=== PATIENT | male | born 1980 | race Caucasian/White ===

== ENCOUNTER 2017-10-10 10:59 | Inpatient (IN) | payer OTHER ==
[2017-10-10 11:26] VITALS: BMI 20.5
--- NOTE | 2017-10-10 12:38 | HP ---
COWS - Scale Resting Pulse: 1= NC 81-100 Sweatin=Flushed/Facial Moisture Restless Observation: 3= Extraneous Movement Pupil Size: 2= Moderately Dilated Bone or Joint Aches: 2= Severe Diffuse Aches Runny Nose/ Eye Tearin= Runny Nose/Eyes GI Upset > 30mins: 3= Vomiting/Diarrhea Tremor Observation: 2= Slight Tremor Visible Yawning Observation: 2= >3x During Session Anxiety or Irritability: 2=Irritable/Anxious Goose Flesh Skin: 0=Smooth Skin COWS Score: 21 Admission ROS BHS - HPI Chief Complaint: I NEED HELP TO STOP USING HEROIN AND COCAINE Allergies/Adverse Reactions: Allergies Allergy/AdvReac Type Severity Reaction Status Date / Time No Known Allergies Allergy Verified 10/10/17 11:49 History of Present Illness: THIS 36 YEARS OLD MALE WITH HEROIN AND COCAINE DEPENDENCE,SEEKING DETOX, WITHDRAWAL SYMPTOM,LAST DETOX [facility] 01/30/15 TO 02/02/15 NOT COMPLETED DEPRESSION AND INSOMNIA WEIGHT LOSS NICOTINE DEPENDENCE LONGEST PERIOD OF SOBRIETY 4 YEARS - Ebola screening Have you traveled outside of the country in the last 21 days: No (N) Have you had contact with anyone from an Ebola affected area: No Have you been sick,other than usual withdrawal symptoms: No Do you have a fever: No - Review of Systems Constitutional: Chills, Loss of Appetite, Malaise, Night Sweats, Changes in sleep, Weakness, Unintentional Wgt. Loss EENT: reports: Tearing, Nose Congestion Respiratory: reports: No Symptoms reported Cardiac: reports: Palpitations GI: reports: Diarrhea, Nausea, Vomiting, Abdominal cramping : reports: No Symptoms Reported Musculoskeletal: reports: Back Pain, Muscle Pain Integumentary: reports: Dryness Neuro: reports: Headache, Tremors Endocrine: reports: No Symptoms Reported, See HPI, Excessive Sweating, Flushing Hematology: reports: No Symptoms Reported Psychiatric: reports: Depressed Patient History - Patient Medical History Hx Anemia: No Hx Asthma: No Hx Chronic Obstructive Pulmonary Disease (COPD): No Hx Cancer: No Hx Cardiac Disorders: No Hx Congestive Heart Failure: No Hx Hypertension: No Hx Hypercholesterolemia: No Hx Pacemaker: No HX Cerebrovascular Accident: No Hx Seizures: No Hx Dementia: No Hx Diabetes: No Hx Gastrointestinal Disorders: No Hx Liver Disease: Yes Hx Genitourinary Disorders: No Hx Sexually Transmitted Disorders: No Hx Renal Disease (ESRD): No Hx Thyroid Disease: No Hx Human Immunodeficiency Virus (HIV): No (2017 NEGATIVE) Hx Hepatitis C: Yes (SINCE 2000) Hx Depression: Yes Hx Suicide Attempt: No Hx Bipolar Disorder: No Hx Schizophrenia: No Other Medical History: NO SUICIDAL,NO HOMICIDAL - Patient Surgical History Past Surgical History: No Hx Neurologic Surgery: No Hx Cataract Extraction: No Hx Cardiac Surgery: No Hx Lung Surgery: No Hx Breast Surgery: No Hx Breast Biopsy: No Hx Abdominal Surgery: No Hx Appendectomy: No Hx Cholecystectomy: No Hx Genitourinary Surgery: No Hx Section: No Hx Orthopedic Surgery: No Anesthesia Reaction: No - PPD History Previous Implant?: Yes Documented Results: Negative w/o proof Implanted On Prior [facility] Admission?: Yes Date: 02/01/15 PPD to be Administered?: Yes - Smoking Cessation Smoking history: Current every day smoker Have you smoked in the past 12 months: Yes Aproximately how many cigarettes per day: 20 Cigars Per Day: 0 Hx Chewing Tobacco Use: No Initiated information on smoking cessation: Yes 'Breaking Loose' booklet given: 10/10/17 - Substance & Tx. History Hx Alcohol Use: No Hx Substance Use: Yes Substance Use Type: Cocaine, Heroin Hx Substance Use Treatment: Yes ([facility] 01/30/15 TO 02/02/15 NOT COMPLETED) - Substances Abused Heroin Route: Injection Frequency: Daily Amount used: 15 bags Age of first use: 12 Date of Last Use: 10/09/17 Cocaine Route: Injection Frequency: Daily Amount used: 3-4 bags Age of first use: 12 Date of Last Use: 10/09/17 Family Disease History - Family Disease History Family History: Denies Admission Physical Exam [facility] - Vital Signs Vital Signs: Vital Signs - 24 hr 10/10/17 11:23 Temperature 97.8 F Pulse Rate 92 H Respiratory 18 Rate Blood Pressure 100/60 - Physical General Appearance: Yes: Moderate Distress, Alcohol on Breath, Intoxicated, Irritable, Sweating, Anxious HEENTM: Yes: Normal ENT Inspection, JERRY, Pharynx Normal Respiratory: Yes: Lungs Clear, Normal Breath Sounds, No Respiratory Distress Neck: Yes: Supple, Trachea in good position, Thyroid tenderness Breast: Yes: Within Normal Limits Cardiology: Yes: Within Normal Limits, Regular Rhythm, Regular Rate, S1, S2 Abdominal: Yes: Within Normal Limits, Normal Bowel Sounds, Non Tender, Flat, Soft Genitourinary: Yes: Within Normal Limits Back: Yes: Muscle Spasm Musculoskeletal: Yes: Back pain, Muscle Pain Extremities: Yes: Normal Inspection, Normal Range of Motion, Tremors Neurological: Yes: alarm operator II-XII NML intact, Alert, Motor Strength 5/5 Integumentary: Yes: Dry Lymphatic: Yes: Within Normal Limits - Diagnostic (1) Opioid dependence with withdrawal Current Visit: Yes Status: Acute (2) Cocaine dependence Current Visit: Yes Status: Chronic (3) Hepatitis C Current Visit: No Status: Acute (4) Nicotine dependence Current Visit: Yes Status: Chronic (5) Weight decreased Current Visit: No Status: Chronic (6) Depression Current Visit: Yes Status: Chronic (7) Insomnia Current Visit: Yes Status: Acute Cleared for Admission [facility] - Detox or Rehab [facility] Level of Care: Medically Managed Detox Regimen/Protocol: Methadone [facility] Breath Alcohol Content Breath Alcohol Content: 0 Urine Drug Screen - Results Drug Screen Negative: No Urine Drug Screen Results: SAI-Cocaine, OPI-Opiates, MTD-Methadone
[2017-10-10] MEDS ORDERED: MAGNESIUM CITRATE 300 ML BOTTLE PO PRN (12:46)
[2017-10-10] MEDS ORDERED: LOPERAMIDE HCL 2 MG CAPSULE PO PRN (12:46)
[2017-10-10] MEDS ORDERED: P-EPHED 60MG/TRIPROLIDI 2.5MG TABLET PO PRN (12:46)
[2017-10-10] MEDS ORDERED: MENTHOL/PHENOL 1 EACH UD MM PRN (12:46)
[2017-10-10] MEDS ORDERED: guaiFENesin/D-METHORPHAN HB 10 ML UNIT-DOSE CUPS PO PRN (12:46)
[2017-10-10] MEDS ORDERED: MAGNESIUM HYDROX 2400MG/30ML ORAL SUSPENSION 30 ML CUP PO PRN (12:46)
[2017-10-10] MEDS ORDERED: MAG HYDROX/AL HYDROX/SIMETH 30 ML UNIT-DOSE CUP PO PRN (12:46)
[2017-10-10] MEDS ORDERED: ACETAMINOPHEN 325 MG TABLET (FP) PO PRN (12:46)
[2017-10-10] MEDS ORDERED: NICOTINE POLACRILEX 2 MG GUM BUC PRN (12:46)
[2017-10-10] MEDS ORDERED: IBUPROFEN 400 MG TABLET (FP) PO PRN (12:46)
[2017-10-10] MEDS ORDERED: hydrOXYzine PAMOATE 25 MG CAPSULE (FP) PO PRN (12:46)
[2017-10-10] MEDS ORDERED: METHADONE HCL 10 MG TABLET (FOR DETOX USE ONLY) PO ONE ×2 (14:20→23:00)
[2017-10-10] MEDS ORDERED: METHADONE HCL 10 MG TABLET (FOR DETOX USE ONLY) ONE (16:59)
[2017-10-10] MEDS: diazePAM 5 MG TABLET PO PRN ×2 (17:13→22:35)
[2017-10-10] MEDS: NICOTINE 21 MG/24 HOURS TOPICAL PATCH TD SCH (17:16)
[2017-10-10 22:19] LABS: URINE APPEARANCE CLEAR; URINE BILIRUBIN NEGATIVE (NEGATIVE); URINE BLOOD NEGATIVE (NEGATIVE); URINE COLOR DKYELLOW; URINE GLUCOSE (UA) NEGATIVE (NEGATIVE); URINE KETONE NEGATIVE (NEGATIVE); URINE LEUK ESTERASE NEGATIVE (NEGATIVE); URINE NITRITE NEGATIVE (NEGATIVE); URINE PROTEIN NEGATIVE (NEGATIVE)
[2017-10-10] MEDS: THIAMINE HCL 100 MG TABLET (FP) PO SCH (22:35)
[2017-10-11] MEDS ORDERED: METHADONE HCL 10 MG TABLET (FOR DETOX USE ONLY) PO ONE (10:00)
[2017-10-11] MEDS: PRENATAL VITAMINS W/ FOLIC ACID TABLET (FP) PO SCH (10:15)
[2017-10-11] MEDS: NICOTINE 21 MG/24 HOURS TOPICAL PATCH TD SCH (10:16)
[2017-10-11 10:29] LABS: HEMATOCRIT 45.9 % (35.4-49); HEMOGLOBIN 14.8 GM/dL (11.7-16.9); MCH 27.7 pg (25.7-33.7); MCHC 32.2 g/dl (32.0-35.9); MEAN PLT VOLUME 10.1 fl (7.5-11.1); PLATELET COUNT 219 K/MM3 (134-434); RBC 5.34 M/mm3 (4.00-5.60); RDW 12.9 % (11.9-15.9); WHITE BLOOD COUNT 6.3 K/mm3 (4.0-10.0)
[2017-10-11 10:37] LABS: CHLORIDE 106 mmol/L (98-107); POTASSIUM 4.3 mmol/L (3.5-5.1); SODIUM 146 mmol/L (136-145)
--- NOTE | 2017-10-11 10:39 | CONSULT ---
[facility] Psychiatric Consult - Data Date of interview: 10/11/17 Admission source: [facility] Identifying data: Readmission to [facility] for this 36 y/o male seeking detox treatment on for heroin and cocaine dependence.Patient is single without children,homeless,unemployed and reportedly deprived of income. Substance Abuse History: Confirmed by patient in this interview.Smoking history : Current every day smoker. Have you smoked in the past 12 months: Yes. Aproximately how many cigarettes per day: 20. Cigars Per Day: 0. Hx Chewing Tobacco Use: No. Initiated information on smoking cessation: Yes. 'Breaking Loose' booklet given: 10/10/17. - Substance & Tx. History. Hx Alcohol Use: No. Hx Substance Use: Yes. Substance Use Type: Cocaine, Heroin. Hx Substance Use Treatment: Yes ([facility] 01/30/15 TO 02/02/15 NOT COMPLETED). - Substances Abused. Heroin. Route: Injection. Frequency: Daily. Amount used: 15 bags. Age of first use: 12. Date of Last Use: 10/09/17. Cocaine. Route: Injection. Frequency: Daily. Amount used: 3-4 bags. Age of first use: 12. Date of Last Use: 10/09/17 Medical History: Hepatitis C. Psychiatric History: Patient admits to a history of multiple psychiatric hospitalizations ([place] [id number],[facility], [place]) .Diagnosed with MDD and Anxiety Disorder.Reportedly medicated with xanax, klonopin and zolpidem.Mr Adrian declares that he used to be followed by Dr Lee ([facility]) in the [place].Patient informs that he got released from senior living last week.No recent history of OPD care.Inquisitive about ways to secure scripts for benzodiazepines after discharge from [facility].Patient endorses a history of three suicide attempts (deliberate overdoses with drugs). Physical/Sexual Abuse/Trauma History: No reported history of abuse. Additional Comment: Urine Drug Screen Results: SAI-Cocaine, OPI-Opiates, MTD- Methadone.Noted. Mental Status Exam - Mental Status Exam Alert and Oriented to: Time, Place, Person Cognitive Function: Good Patient Appearance: Well Groomed (tattoos on both forearms) Mood: Hopeful, Euthymic Affect: Normal Range Patient Behavior: Inappropriate (as evidenced by his request for surrepticious prescriptions for xanax), Cooperative Speech Pattern: Clear Voice Loudness: Normal Thought Process: Intact, Goal Oriented Thought Disorder: Not Present Hallucinations: Denies Suicidal Ideation: Denies Homicidal Ideation: Denies Insight/Judgement: Poor Sleep: Fair Appetite: Good Muscle strength/Tone: Normal Gait/Station: Normal Psychiatric Findings - Problem List ([place] 1, 2,3) (1) Opioid dependence with withdrawal Status: Acute (2) Cocaine dependence Status: Chronic (3) Nicotine dependence Status: Chronic (4) Substance induced mood disorder Status: Acute - Initial Treatment Plan Initial Treatment Plan: Psychoeducation and firm redirections.Patient is made aware of the inappropriateness of his behavior (pressuring this keno writer / runner to write script for xanax on his behalf in violation of practice guidelines).Mr Campbell offered immediate apologies.Detoxification in progress.Daily monitoring of hospital course.Vigilance for prevention of transit of contraband.
[2017-10-11 10:44] LABS: ALK PHOS 118 U/L (45-117); ANION GAP 5 (8-16); BILIRUBIN,TOTAL 0.5 mg/dL (0.2-1.0); BLOOD UREA NITROGEN 19 mg/dL (7-18); CALCIUM 9.1 mg/dL (8.5-10.1); CO2 35 mmol/L (21-32); CREATININE 0.8 mg/dL (0.7-1.3); GLUCOSE,RANDOM 79 mg/dL (74-106); SGOT/AST 49 U/L (15-37); SGPT/ALT 64 U/L (12-78)
[2017-10-11] MEDS: diazePAM 5 MG TABLET PO PRN ×2 (13:43→19:44)
--- NOTE | 2017-10-11 16:00 | EKG ---
Test Reason : Blood Pressure : / mmHG Vent. Rate : 066 BPM Atrial Rate : 066 BPM P-R Int : 134 ms QRS Dur : 100 ms QT Int : 346 ms P-R-T Axes : 061 070 053 degrees QTc Int : 362 ms NORMAL SINUS RHYTHM NORMAL ECG NO PREVIOUS ECGS AVAILABLE Confirmed by IAIN SMALL, CRISTAL ([id number]) on 10/11/2017 4:00:02 PM Referred By: Confirmed By:CRISTAL TIMMONS MD
--- NOTE | 2017-10-11 16:02 | PN ---
BHS COWS - Scale Resting Pulse: 0= NC 80 or Below Sweatin=Flushed/Facial Moisture Restless Observation: 3= Extraneous Movement Pupil Size: 0= Normal to Room Light Bone or Joint Aches: 2= Severe Diffuse Aches Runny Nose/ Eye Tearin= Runny Nose/Eyes GI Upset > 30mins: 2= Nausea/Diarrhea Tremor Observation of Outstretched Hands: 2= Slight Tremor Visible Yawning Observation: 0= None Anxiety or Irritability: 2=Irritable/Anxious Goose Flesh Skin: 0=Smooth Skin COWS Score: 15 BHS Progress Note (SOAP) Subjective: Nausea, headache, interrupted sleep Objective: 10/11/17 16:00 Last Vital Signs Temp Pulse Resp BP Pulse Ox 97.4 F L 73 18 105/58 10/11/17 14:03 10/11/17 14:03 10/11/17 14:03 10/11/17 14:03 Laboratory Tests 10/10/17 10/10/17 10/11/17 13:00 20:09 06:10 WBC 6.3 D RBC 5.34 Hgb 14.8 Hct 45.9 MCV 86.0 MCH 27.7 MCHC 32.2 RDW 12.9 Plt Count 219 D MPV 10.1 Sodium Potassium Chloride Carbon Dioxide Anion Gap BUN Creatinine Creat Clearance w eGFR Random Glucose Calcium Total Bilirubin AST ALT Alkaline Phosphatase Total Protein Albumin Urine Color Dkyellow Urine Appearance Clear Urine pH 5.0 D Ur Specific [place] 1.025 Urine Protein Negative Urine Glucose (UA) Negative Urine Ketones Negative Urine Blood Negative Urine Nitrite Negative Urine Bilirubin Negative Urine Urobilinogen 2.0 Ur Leukocyte Esterase Negative RPR Titer HIV 1&2 Antibody Screen Negative HIV P24 Antigen Negative 10/11/17 10/11/17 06:10 06:10 WBC RBC Hgb Hct MCV MCH MCHC RDW Plt Count MPV Sodium 146 H Potassium 4.3 Chloride 106 Carbon Dioxide 35 H Anion Gap 5 L BUN 19 H D Creatinine 0.8 Creat Clearance w eGFR > 60 Random Glucose 79 Calcium 9.1 Total Bilirubin 0.5 D AST 49 H D ALT 64 D Alkaline Phosphatase 118 H D Total Protein 7.0 Albumin 4.0 Urine Color Urine Appearance Urine pH Ur Specific [place] Urine Protein Urine Glucose (UA) Urine Ketones Urine Blood Urine Nitrite Urine Bilirubin Urine Urobilinogen Ur Leukocyte Esterase RPR Titer Nonreactive HIV 1&2 Antibody Screen HIV P24 Antigen Labs noted Assessment: 10/11/17 16:01 Withdrawal symptoms Plan: Continue detox
[2017-10-11] MEDS: THIAMINE HCL 100 MG TABLET (FP) PO SCH (22:09)
[2017-10-12] MEDS: diazePAM 5 MG TABLET PO PRN ×2 (07:03→10:14)
[2017-10-12] MEDS ORDERED: METHADONE HCL 5 MG TABLET (FOR DETOX USE ONLY) PO ONE (10:00)
[2017-10-12] MEDS: PRENATAL VITAMINS W/ FOLIC ACID TABLET (FP) PO SCH (10:14)
[2017-10-12] MEDS: NICOTINE 21 MG/24 HOURS TOPICAL PATCH TD SCH (10:15)
[2017-10-12 18:33] VITALS: BP 106/69; PULSE 67; TEMP 97.9
--- NOTE | 2017-10-12 22:14 | PN ---
BHS COWS - Scale Resting Pulse: 0= [place] 80 or Below Sweatin=Flushed/Facial Moisture Restless Observation: 1= Difficult to Sit Still Pupil Size: 0= Normal to Room Light Bone or Joint Aches: 1= Mild Discomfort Runny Nose/ Eye Tearin= Nasal Congestion GI Upset > 30mins: 2= Nausea/Diarrhea Tremor Observation of Outstretched Hands: 2= Slight Tremor Visible Yawning Observation: 0= None Anxiety or Irritability: 2=Irritable/Anxious Goose Flesh Skin: 0=Smooth Skin COWS Score: 11 BHS Progress Note (SOAP) Subjective: sweats diarrhea Objective: 10/12/17 22:12 Vital Signs Temperature 97.9 F 10/12/17 18:32 Pulse Rate 67 10/12/17 18:32 Respiratory Rate 16 10/12/17 18:32 Blood Pressure 106/69 10/12/17 18:32 O2 Sat by Pulse Oximetry (%) Laboratory Last Values WBC 6.3 K/mm3 (4.0-10.0) D 10/11/17 06:10 RBC 5.34 M/mm3 (4.00-5.60) 10/11/17 06:10 Hgb 14.8 GM/dL (11.7-16.9) 10/11/17 06:10 Hct 45.9 % (35.4-49) 10/11/17 06:10 MCV 86.0 fl (80-96) 10/11/17 06:10 MCH 27.7 pg (25.7-33.7) 10/11/17 06:10 MCHC 32.2 g/dl (32.0-35.9) 10/11/17 06:10 RDW 12.9 % (11.9-15.9) 10/11/17 06:10 Plt Count 219 K/MM3 (134-434) D 10/11/17 06:10 MPV 10.1 fl (7.5-11.1) 10/11/17 06:10 Sodium 146 mmol/L (136-145) H 10/11/17 06:10 Potassium 4.3 mmol/L (3.5-5.1) 10/11/17 06:10 Chloride 106 mmol/L (98-107) 10/11/17 06:10 Carbon Dioxide 35 mmol/L (21-32) H 10/11/17 06:10 Anion Gap 5 (8-16) L 10/11/17 06:10 BUN 19 mg/dL (7-18) H D 10/11/17 06:10 Creatinine 0.8 mg/dL (0.7-1.3) 10/11/17 06:10 Creat Clearance w eGFR > 60 (>60) 10/11/17 06:10 Random Glucose 79 mg/dL (74-106) 10/11/17 06:10 Calcium 9.1 mg/dL (8.5-10.1) 10/11/17 06:10 Total Bilirubin 0.5 mg/dL (0.2-1.0) D 10/11/17 06:10 AST 49 U/L (15-37) H D 10/11/17 06:10 ALT 64 U/L (12-78) D 10/11/17 06:10 Alkaline Phosphatase 118 U/L (45-117) H D 10/11/17 06:10 Total Protein 7.0 g/dl (6.4-8.2) 10/11/17 06:10 Albumin 4.0 g/dl (3.4-5.0) 10/11/17 06:10 Urine Color Dkyellow 10/10/17 20:09 Urine Appearance Clear 10/10/17 20:09 Urine pH 5.0 (5.0-8.0) D 10/10/17 20:09 Ur Specific [place] 1.025 (1.001-1.035) 10/10/17 20:09 Urine Protein Negative (NEGATIVE) 10/10/17 20:09 Urine Glucose (UA) Negative (NEGATIVE) 10/10/17 20:09 Urine Ketones Negative (NEGATIVE) 10/10/17 20:09 Urine Blood Negative (NEGATIVE) 10/10/17 20:09 Urine Nitrite Negative (NEGATIVE) 10/10/17 20:09 Urine Bilirubin Negative (NEGATIVE) 10/10/17 20:09 Urine Urobilinogen 2.0 mg/dL (0.2-1.0) 10/10/17 20:09 Ur Leukocyte Esterase Negative (NEGATIVE) 10/10/17 20:09 RPR Titer Nonreactive (NONREACTIVE) 10/11/17 06:10 HIV 1&2 Antibody Screen Negative 10/10/17 13:00 HIV P24 Antigen Negative 10/10/17 13:00 labs noted Assessment: 10/12/17 22:13 withdrawal sx Plan: continue detox
--- NOTE | 2017-10-12 22:18 | DS ---
[facility] Detox Discharge Summary Admission Date: 10/10/17 Discharge Date: 10/12/17 - History Additional Comments: Pt insisted on leaving - Physical Exam Results Vital Signs: Vital Signs Temperature 97.9 F 10/12/17 18:32 Pulse Rate 67 10/12/17 18:32 Respiratory Rate 16 10/12/17 18:32 Blood Pressure 106/69 10/12/17 18:32 O2 Sat by Pulse Oximetry (%) Pertinent Admission Physical Exam Findings: withdrawal sx - Medication Discharge Medications: Ambulatory Orders NK [No Known Home Medication] 01/30/15 - Diagnosis (1) Opioid dependence with withdrawal Status: Acute (2) Nicotine dependence Status: Chronic (3) Substance induced mood disorder Status: Acute (4) Cocaine dependence Status: Chronic (5) Heroin dependence Status: Acute (6) Depression Status: Chronic - AMA Did Patient Leave Against Medical Advice: Yes
[2017-10-13] MEDS ORDERED: METHADONE HCL 5 MG TABLET (FOR DETOX USE ONLY) PO ONE (10:00)
[2017-10-14] MEDS ORDERED: METHADONE HCL 10 MG TABLET (FOR DETOX USE ONLY) PO ONE (10:00)
[2017-10-15] MEDS ORDERED: METHADONE HCL 5 MG TABLET (FOR DETOX USE ONLY) PO ONE (06:00)
== END 2017-10-12 17:56 | disposition left against medical advice (07) | DRG 770 ==
LOC: YASAS 10:59 → Y3N 13:04
PROVIDERS: ADMIT Internal Medicine; ATTEND Internal Medicine
PROC: HZ2ZZZZ Detoxification Services for Substance Abuse Treatment (ICD-10-PCS; principal; 2017-10-10)
DX: F11.23 Opioid dependence with withdrawal (principal); F14.20 Cocaine dependence, uncomplicated; F17.210 Nicotine dependence, cigarettes, uncomplicated; F32.9 Major depressive disorder, single episode, unspecified; F19.24 Other psychoactive substance dependence with psychoactive substance-induced mood disorder; G47.00 Insomnia, unspecified; Z87.898 Personal history of other specified conditions
CPT/HCPCS: 36415; 80053; 81003; 85027; 86593; 87389; 93005; 93010

== ENCOUNTER 2021-06-01 16:31 | Inpatient (IN) | payer OTHER ==
[2021-06-01 18:46] VITALS: BMI 18.8
[2021-06-01] MEDS ORDERED: ACETAMINOPHEN 325 MG TABLET (FP) PO PRN (23:29)
[2021-06-01] MEDS ORDERED: MAG HYDROX/AL HYDROX/SIMETH 30 ML UNIT-DOSE CUP PO PRN (23:29)
[2021-06-01] MEDS ORDERED: P-EPHED 60MG/TRIPROLIDI 2.5MG TABLET PO PRN (23:29)
[2021-06-01] MEDS ORDERED: MAGNESIUM HYDROX 2400MG/30ML ORAL SUSPENSION 30 ML CUP PO PRN (23:29)
[2021-06-01] MEDS ORDERED: hydrOXYzine PAMOATE 25 MG CAPSULE (FP) PO PRN (23:29)
[2021-06-01] MEDS ORDERED: guaiFENesin 200 MG/10 ML 10 ML UNIT-DOSE CUPS PO PRN (23:29)
[2021-06-01] MEDS ORDERED: LOPERAMIDE HCL 2 MG CAPSULE PO PRN (23:29)
[2021-06-01] MEDS ORDERED: IBUPROFEN 400 MG TABLET (FP) PO PRN (23:29)
[2021-06-01] MEDS ORDERED: MAGNESIUM CITRATE 300 ML BOTTLE PO PRN (23:29)
[2021-06-02] MEDS ORDERED: TUBERCULIN PPD 5 TU/0.1ML VIAL ID ONE (01:43)
[2021-06-02] MEDS: MELATONIN 5 MG TABLETS PO SCH ×2 (02:21→23:03)
[2021-06-02] MEDS ORDERED: methaDONE HCL 40 MG DISPERSABLE TABLET PO SCH (07:45)
[2021-06-02] MEDS ORDERED: methaDONE HCL 10 MG TABLET ONE (08:53)
[2021-06-02] MEDS ORDERED: methaDONE HCL 40 MG DISPERSABLE TABLET ONE (08:54)
[2021-06-02] MEDS: NICOTINE POLACRILEX 2 MG GUM BC PRN ×6 (09:13→23:37)
[2021-06-02] MEDS: PRENATAL VITAMINS W/ FOLIC ACID TABLET (FP) PO SCH (09:15)
[2021-06-02 14:30] LABS: HEMATOCRIT 40.3 % (35.4-49); HEMOGLOBIN 13.2 GM/dL (11.7-16.9); MCH 28.4 pg (25.7-33.7); MCHC 32.9 g/dl (32.0-35.9); MEAN CELL VOLUME 86.6 fl (80-96); MEAN PLT VOLUME 8.6 fl (7.5-11.1); PLATELET COUNT 235 10^3/uL (134-434); RBC 4.65 M/mm3 (4.00-5.60); RDW 13.5 % (11.9-15.9); WHITE BLOOD COUNT 8.7 K/mm3 (4.0-10.0)
[2021-06-02 15:07] LABS: PH,URINE 8.5 (5.0-8.0); URINE APPEARANCE CLEAR; URINE BILIRUBIN NEGATIVE (NEGATIVE); URINE COLOR YELLOW; URINE GLUCOSE (UA) NEGATIVE (NEGATIVE); URINE KETONE NEGATIVE (NEGATIVE); URINE LEUK ESTERASE NEGATIVE (NEGATIVE); URINE NITRITE NEGATIVE (NEGATIVE); URINE PROTEIN NEGATIVE (NEGATIVE); URINE UROBILINOGEN 0.2 mg/dL (0.2-1.0)
[2021-06-02 18:03] LABS: ALBUMIN 3.6 g/dl (3.4-5.0); BLOOD UREA NITROGEN 19.2 mg/dL (7-18)
[2021-06-02 18:04] LABS: CREATININE 0.7 mg/dL (0.55-1.3)
[2021-06-02 18:05] LABS: TOT PROT 7.1 g/dl (6.4-8.2)
[2021-06-02 18:06] LABS: BILIRUBIN,TOTAL 0.2 mg/dL (0.2-1)
[2021-06-02] MEDS: THIAMINE HCL 100 MG TABLET (FP) PO SCH (23:03)
[2021-06-03] MEDS: NICOTINE 10 MG CARTRIDGE (INHALER) IH PRN ×2 (03:37→17:48)
[2021-06-03] MEDS: NICOTINE POLACRILEX 2 MG GUM BC PRN ×3 (03:38→13:30)
[2021-06-03] MEDS ORDERED: methaDONE HCL 10 MG TABLET ONE (05:39)
[2021-06-03] MEDS ORDERED: methaDONE HCL 40 MG DISPERSABLE TABLET ONE (05:39)
[2021-06-03] MEDS: PRENATAL VITAMINS W/ FOLIC ACID TABLET (FP) PO SCH (09:42)
[2021-06-03] MEDS: THIAMINE HCL 100 MG TABLET (FP) PO SCH (23:07)
[2021-06-03] MEDS: MELATONIN 5 MG TABLETS PO SCH (23:07)
[2021-06-04] MEDS ORDERED: methaDONE HCL 10 MG TABLET ONE (02:42)
[2021-06-04] MEDS ORDERED: methaDONE HCL 40 MG DISPERSABLE TABLET ONE (02:42)
[2021-06-04] MEDS: PRENATAL VITAMINS W/ FOLIC ACID TABLET (FP) PO SCH (09:36)
[2021-06-04] MEDS: NICOTINE 10 MG CARTRIDGE (INHALER) IH PRN (09:37)
[2021-06-04] MEDS: NICOTINE POLACRILEX 2 MG GUM BC PRN ×2 (13:13→21:57)
[2021-06-04] MEDS: THIAMINE HCL 100 MG TABLET (FP) PO SCH (21:56)
[2021-06-04] MEDS: MELATONIN 5 MG TABLETS PO SCH (21:56)
[2021-06-05] MEDS ORDERED: methaDONE HCL 10 MG TABLET ONE (03:21)
[2021-06-05] MEDS ORDERED: methaDONE HCL 40 MG DISPERSABLE TABLET ONE (03:22)
[2021-06-05] MEDS: PRENATAL VITAMINS W/ FOLIC ACID TABLET (FP) PO SCH (09:02)
[2021-06-05] MEDS: NICOTINE 10 MG CARTRIDGE (INHALER) IH PRN (09:03)
[2021-06-05] MEDS: MELATONIN 5 MG TABLETS PO SCH (23:23)
[2021-06-05] MEDS: THIAMINE HCL 100 MG TABLET (FP) PO SCH (23:24)
[2021-06-06] MEDS ORDERED: methaDONE HCL 40 MG DISPERSABLE TABLET ONE (03:25)
[2021-06-06] MEDS ORDERED: methaDONE HCL 10 MG TABLET ONE (03:25)
[2021-06-06] MEDS: PRENATAL VITAMINS W/ FOLIC ACID TABLET (FP) PO SCH (09:15)
[2021-06-06] MEDS ORDERED: LIDOCAINE 5% TOPICAL PATCH TP SCH (10:00)
[2021-06-06] MEDS: NICOTINE 10 MG CARTRIDGE (INHALER) IH PRN (21:33)
[2021-06-06] MEDS: MELATONIN 5 MG TABLETS PO SCH (21:33)
[2021-06-06] MEDS: THIAMINE HCL 100 MG TABLET (FP) PO SCH (21:33)
[2021-06-06] MEDS ORDERED: LIDOCAINE PATCH REMOVAL MC SCH (22:00)
[2021-06-07] MEDS ORDERED: methaDONE HCL 10 MG TABLET ONE (05:34)
[2021-06-07] MEDS ORDERED: methaDONE HCL 40 MG DISPERSABLE TABLET ONE (05:34)
[2021-06-07 06:55] VITALS: BP 103/61; PULSE 68; TEMP 97.1
== END 2021-06-07 08:22 | disposition home or self-care (01) | DRG 772 ==
LOC: YASAS 16:31 → Y5N 06-02 01:08 → Y3E 06-02 01:22
PROVIDERS: ADMIT Allergy & Immunology; ATTEND Allergy & Immunology
PROC: HZ42ZZZ Group Counseling for Substance Abuse Treatment, Cognitive-Behavioral (ICD-10-PCS; principal; 2021-06-02)
DX: F11.20 Opioid dependence, uncomplicated (principal); F14.20 Cocaine dependence, uncomplicated; F10.10 Alcohol abuse, uncomplicated; F12.20 Cannabis dependence, uncomplicated; F17.210 Nicotine dependence, cigarettes, uncomplicated
CPT/HCPCS: 36415; 80053; 81003; 85027; 86780; C9803; U0003; U0005

== ENCOUNTER 2021-12-20 13:58 | Inpatient (IN) | payer OTHER ==
[2021-12-20] MEDS ORDERED: IBUPROFEN 400 MG TABLET (FP) PO PRN (15:12)
[2021-12-20] MEDS ORDERED: chlordiazePOXIDE HCL 25 MG CAPSULE PO PRN (15:12)
[2021-12-20] MEDS ORDERED: ONDANSETRON *ODT* 4 MG TABLET SL PRN (15:12)
[2021-12-20] MEDS ORDERED: ACETAMINOPHEN 325 MG TABLET (FP) PO PRN ×2 (15:12)
[2021-12-20] MEDS ORDERED: BENZOCAINE/MENTHOL (CHLORASEPTIC ) LOZENGE MM PRN (15:12)
[2021-12-20] MEDS ORDERED: MAGNESIUM HYDROX 2400MG/30ML ORAL SUSPENSION 30 ML CUP PO PRN (15:12)
[2021-12-20] MEDS ORDERED: BISMUTH SUBSALICYLATE 524 MG/30 ML PO PRN (15:12)
[2021-12-20] MEDS ORDERED: MAG HYDROX/AL HYDROX/SIMETH 30 ML UNIT-DOSE CUP PO PRN (15:12)
[2021-12-20] MEDS ORDERED: MAGNESIUM CITRATE 300 ML BOTTLE PO PRN (15:12)
[2021-12-20] MEDS ORDERED: DICYCLOMINE HCL 10 MG CAPSULE PO PRN (15:12)
[2021-12-20 15:33] VITALS: BMI 18.3
[2021-12-20] MEDS ORDERED: IBUPROFEN 400 MG TABLET (FP) PO ONE (18:52)
[2021-12-20] MEDS ORDERED: BENZOCAINE 20 % GEL TUBE MM PRN (18:53)
[2021-12-20] MEDS ORDERED: NICOTINE POLACRILEX 2 MG GUM BUC PRN (19:00)
[2021-12-20] MEDS: BACITRACIN 0.9 GM PACKET TP SCH (21:07)
[2021-12-20] MEDS: AMOXICILLIN 500 MG CAPSULE (FP) PO SCH (21:08)
[2021-12-20] MEDS: MELATONIN 5 MG TABLETS PO SCH (21:08)
[2021-12-20] MEDS: THIAMINE HCL 100 MG TABLET (FP) PO SCH (21:08)
[2021-12-20] MEDS: hydrOXYzine PAMOATE 25 MG CAPSULE (FP) PO SCH ×2 (21:08→22:03)
[2021-12-20] MEDS: NICOTINE 14 MG/24 HOURS TOPICAL PATCH TD SCH (21:16)
[2021-12-20] MEDS: PRENATAL VITAMINS W/ FOLIC ACID TABLET (FP) PO SCH (21:17)
[2021-12-20] MEDS: chlordiazePOXIDE HCL 25 MG CAPSULE PO SCH (22:03)
[2021-12-21] MEDS: chlordiazePOXIDE HCL 25 MG CAPSULE PO SCH ×4 (06:54→23:33)
[2021-12-21] MEDS: hydrOXYzine PAMOATE 25 MG CAPSULE (FP) PO SCH ×5 (06:55→23:27)
[2021-12-21] MEDS ORDERED: methaDONE HCL 10 MG TABLET PO SCH (09:15)
[2021-12-21] MEDS ORDERED: methaDONE HCL 10 MG TABLET ONE (09:48)
[2021-12-21] MEDS ORDERED: methaDONE HCL 40 MG DISPERSABLE TABLET ONE (09:48)
[2021-12-21] MEDS: AMOXICILLIN 500 MG CAPSULE (FP) PO SCH ×2 (09:55→23:27)
[2021-12-21] MEDS: PRENATAL VITAMINS W/ FOLIC ACID TABLET (FP) PO SCH (09:55)
[2021-12-21] MEDS: METHOCARBAMOL 500 MG TABLET PO PRN (09:55)
[2021-12-21] MEDS: NICOTINE 14 MG/24 HOURS TOPICAL PATCH TD SCH (09:56)
[2021-12-21] MEDS: BACITRACIN 0.9 GM PACKET TP SCH ×2 (09:56→23:38)
[2021-12-21] MEDS: NICOTINE 10 MG CARTRIDGE (INHALER) IH PRN ×3 (10:21→23:29)
[2021-12-21 10:26] LABS: HEMATOCRIT 42.2 % (35.4-49); HEMOGLOBIN 13.3 GM/dL (11.7-16.9); MCH 26.8 pg (25.7-33.7); MCHC 31.4 g/dl (32.0-35.9); MEAN CELL VOLUME 85.5 fl (80-96); PLATELET COUNT 265 10^3/uL (134-434); RBC 4.94 M/mm3 (4.00-5.60); RDW 13.8 % (11.9-15.9); WHITE BLOOD COUNT 4.7 K/mm3 (4.0-10.0)
[2021-12-21 10:35] LABS: ALBUMIN 3.4 g/dl (3.4-5.0); CALCIUM 9.2 mg/dL (8.5-10.1)
[2021-12-21 10:38] LABS: CREATININE 0.7 mg/dL (0.55-1.3)
[2021-12-21 10:39] LABS: BILIRUBIN,TOTAL 0.4 mg/dL (0.2-1)
[2021-12-21] MEDS: MIRTAZAPINE 15 MG TABLET (FP) PO SCH (23:27)
[2021-12-21] MEDS: MIRTAZAPINE 30 MG TABLET PO SCH (23:27)
[2021-12-21] MEDS: THIAMINE HCL 100 MG TABLET (FP) PO SCH (23:33)
[2021-12-21] MEDS: MELATONIN 5 MG TABLETS PO SCH (23:38)
[2021-12-22] MEDS ORDERED: methaDONE HCL 10 MG TABLET ONE (04:06)
[2021-12-22] MEDS ORDERED: methaDONE HCL 40 MG DISPERSABLE TABLET ONE (04:07)
[2021-12-22] MEDS: chlordiazePOXIDE HCL 25 MG CAPSULE PO SCH ×4 (06:14→23:08)
[2021-12-22] MEDS: hydrOXYzine PAMOATE 25 MG CAPSULE (FP) PO SCH ×3 (06:18→15:31)
[2021-12-22] MEDS: NICOTINE 10 MG CARTRIDGE (INHALER) IH PRN (09:53)
[2021-12-22] MEDS: AMOXICILLIN 500 MG CAPSULE (FP) PO SCH ×2 (10:17→22:46)
[2021-12-22] MEDS: PRENATAL VITAMINS W/ FOLIC ACID TABLET (FP) PO SCH (10:17)
[2021-12-22] MEDS: METHOCARBAMOL 500 MG TABLET PO PRN (10:17)
[2021-12-22] MEDS: BACITRACIN 0.9 GM PACKET TP SCH ×2 (10:18→22:48)
[2021-12-22] MEDS: NICOTINE 14 MG/24 HOURS TOPICAL PATCH TD SCH (10:21)
[2021-12-22 12:09] LABS: URINE APPEARANCE CLEAR; URINE BILIRUBIN NEGATIVE (NEGATIVE); URINE COLOR YELLOW; URINE GLUCOSE (UA) NEGATIVE (NEGATIVE); URINE KETONE NEGATIVE (NEGATIVE); URINE LEUK ESTERASE NEGATIVE (NEGATIVE); URINE NITRITE NEGATIVE (NEGATIVE); URINE PROTEIN NEGATIVE (NEGATIVE); URINE UROBILINOGEN 0.2 mg/dL (0.2-1.0)
[2021-12-22] MEDS ORDERED: hydrOXYzine PAMOATE 25 MG CAPSULE (FP) PO PRN (14:40)
[2021-12-22] MEDS: THIAMINE HCL 100 MG TABLET (FP) PO SCH (22:46)
[2021-12-22] MEDS: MIRTAZAPINE 15 MG TABLET (FP) PO SCH (22:47)
[2021-12-22] MEDS: MELATONIN 5 MG TABLETS PO SCH (22:47)
[2021-12-22] MEDS: MIRTAZAPINE 30 MG TABLET PO SCH (22:50)
[2021-12-23] MEDS ORDERED: chlordiazePOXIDE HCL 10 MG CAPSULE PO PRN
[2021-12-23] MEDS ORDERED: methaDONE HCL 40 MG DISPERSABLE TABLET ONE (03:41)
[2021-12-23] MEDS ORDERED: methaDONE HCL 10 MG TABLET ONE (03:41)
[2021-12-23] MEDS: chlordiazePOXIDE HCL 10 MG CAPSULE PO SCH ×4 (05:53→23:20)
[2021-12-23] MEDS: AMOXICILLIN 500 MG CAPSULE (FP) PO SCH ×2 (10:46→22:30)
[2021-12-23] MEDS: PRENATAL VITAMINS W/ FOLIC ACID TABLET (FP) PO SCH (10:46)
[2021-12-23] MEDS: METHOCARBAMOL 500 MG TABLET PO PRN (10:46)
[2021-12-23] MEDS: NICOTINE 10 MG CARTRIDGE (INHALER) IH PRN ×2 (10:48→22:40)
[2021-12-23] MEDS: NICOTINE 14 MG/24 HOURS TOPICAL PATCH TD SCH (10:48)
[2021-12-23] MEDS: BACITRACIN 0.9 GM PACKET TP SCH ×2 (10:48→22:31)
[2021-12-23] MEDS: THIAMINE HCL 100 MG TABLET (FP) PO SCH (22:30)
[2021-12-23] MEDS: MIRTAZAPINE 30 MG TABLET PO SCH (22:30)
[2021-12-23] MEDS: MIRTAZAPINE 15 MG TABLET (FP) PO SCH (22:30)
[2021-12-23] MEDS: MELATONIN 5 MG TABLETS PO SCH (23:20)
[2021-12-24] MEDS ORDERED: methaDONE HCL 10 MG TABLET ONE (04:08)
[2021-12-24] MEDS ORDERED: methaDONE HCL 40 MG DISPERSABLE TABLET ONE (04:09)
[2021-12-24] MEDS: chlordiazePOXIDE HCL 10 MG CAPSULE PO SCH ×2 (06:14→17:20)
[2021-12-24] MEDS: NICOTINE 10 MG CARTRIDGE (INHALER) IH PRN ×2 (06:17→22:42)
[2021-12-24] MEDS ORDERED: MINERAL OIL 30 ML UNIT-DOSE CUP PO ONE ×2 (09:56→14:00)
[2021-12-24] MEDS: BACITRACIN 0.9 GM PACKET TP SCH ×2 (10:24→22:34)
[2021-12-24] MEDS: NICOTINE 14 MG/24 HOURS TOPICAL PATCH TD SCH (10:25)
[2021-12-24] MEDS: AMOXICILLIN 500 MG CAPSULE (FP) PO SCH ×2 (10:25→22:34)
[2021-12-24] MEDS: PRENATAL VITAMINS W/ FOLIC ACID TABLET (FP) PO SCH (10:25)
[2021-12-24] MEDS: MIRTAZAPINE 30 MG TABLET PO SCH (22:34)
[2021-12-24] MEDS: MIRTAZAPINE 15 MG TABLET (FP) PO SCH (22:34)
[2021-12-24] MEDS: THIAMINE HCL 100 MG TABLET (FP) PO SCH (22:35)
[2021-12-24] MEDS: MELATONIN 5 MG TABLETS PO SCH (22:35)
[2021-12-25] MEDS ORDERED: methaDONE HCL 40 MG DISPERSABLE TABLET ONE (04:06)
[2021-12-25] MEDS ORDERED: methaDONE HCL 10 MG TABLET ONE (04:06)
[2021-12-25] MEDS ORDERED: chlordiazePOXIDE HCL 10 MG CAPSULE PO ONE (05:00)
[2021-12-25] MEDS: LOPERAMIDE HCL 2 MG CAPSULE PO PRN ×2 (06:16→13:43)
[2021-12-25] MEDS: AMOXICILLIN 500 MG CAPSULE (FP) PO SCH (10:43)
[2021-12-25] MEDS: BACITRACIN 0.9 GM PACKET TP SCH (10:43)
[2021-12-25] MEDS: PRENATAL VITAMINS W/ FOLIC ACID TABLET (FP) PO SCH (10:43)
[2021-12-25] MEDS: NICOTINE 14 MG/24 HOURS TOPICAL PATCH TD SCH (10:43)
[2021-12-25 13:52] VITALS: BP 105/58; PULSE 79; TEMP 98
[2021-12-25 14:08] LABS: SARS-CoV-2 NAA Not Detected (Not Detected)
== END 2021-12-25 15:23 | disposition other institution (70) | DRG 773 ==
LOC: YASAS 13:58 → Y6N 16:55
PROVIDERS: ADMIT Allergy & Immunology; ATTEND Allergy & Immunology
PROC: HZ2ZZZZ Detoxification Services for Substance Abuse Treatment (ICD-10-PCS; principal; 2021-12-20)
DX: F11.23 Opioid dependence with withdrawal (principal); F10.230 Alcohol dependence with withdrawal, uncomplicated; F14.20 Cocaine dependence, uncomplicated; F12.20 Cannabis dependence, uncomplicated; F17.213 Nicotine dependence, cigarettes, with withdrawal; F19.282 Other psychoactive substance dependence with psychoactive substance-induced sleep disorder; F32.A Depression, unspecified; M54.50 Low back pain, unspecified; G89.29 Other chronic pain; R19.7 Diarrhea, unspecified; R10.31 Right lower quadrant pain; R63.4 Abnormal weight loss; Z68.1 Body mass index [BMI] 19.9 or less, adult; Z86.19 Personal history of other infectious and parasitic diseases; Z59.01 Sheltered homelessness; Z56.0 Unemployment, unspecified
CPT/HCPCS: 36415; 80053; 81003; 85027; 86780; C9803-CS; U0003; U0005

== ENCOUNTER 2021-12-25 15:32 | Inpatient (IN) | payer OTHER ==
[2021-12-25 15:43] VITALS: BP 123/77; PULSE 87; TEMP 98.1
[2021-12-25] MEDS ORDERED: MAGNESIUM HYDROX 2400MG/30ML ORAL SUSPENSION 30 ML CUP PO PRN (16:20)
[2021-12-25] MEDS ORDERED: IBUPROFEN 400 MG TABLET (FP) PO PRN (16:20)
[2021-12-25] MEDS ORDERED: MELATONIN 5 MG TABLETS PO PRN (16:20)
[2021-12-25] MEDS ORDERED: MAG HYDROX/AL HYDROX/SIMETH 30 ML UNIT-DOSE CUP PO PRN (16:20)
[2021-12-25] MEDS ORDERED: LOPERAMIDE HCL 2 MG CAPSULE PO PRN (16:20)
[2021-12-25] MEDS ORDERED: BENZOCAINE/MENTHOL (CHLORASEPTIC ) LOZENGE MM PRN (16:20)
[2021-12-25] MEDS ORDERED: P-EPHED 60MG/TRIPROLIDI 2.5MG TABLET PO PRN (16:20)
[2021-12-25] MEDS ORDERED: ACETAMINOPHEN 325 MG TABLET (FP) PO PRN (16:20)
[2021-12-25] MEDS ORDERED: MAGNESIUM CITRATE 300 ML BOTTLE PO PRN (16:20)
[2021-12-25] MEDS ORDERED: NICOTINE 10 MG CARTRIDGE (INHALER) IH PRN (16:20)
[2021-12-25] MEDS ORDERED: guaiFENesin 200 MG/10 ML 10 ML UNIT-DOSE CUPS PO PRN (16:20)
[2021-12-25] MEDS ORDERED: THIAMINE HCL 100 MG TABLET (FP) PO SCH (22:00)
[2021-12-25] MEDS ORDERED: AMOXICILLIN 500 MG CAPSULE (FP) PO SCH (22:00)
[2021-12-26] MEDS ORDERED: methaDONE HCL 40 MG DISPERSABLE TABLET PO SCH (06:00)
[2021-12-26] MEDS ORDERED: PRENATAL VITAMINS W/ FOLIC ACID TABLET (FP) PO SCH (10:00)
== END 2021-12-25 17:20 | disposition short-term general hospital (02) | DRG 772 ==
LOC: YASAS 15:32 → Y3E 15:33
PROVIDERS: ADMIT Allergy & Immunology; ATTEND Allergy & Immunology
PROC: HZ42ZZZ Group Counseling for Substance Abuse Treatment, Cognitive-Behavioral (ICD-10-PCS; principal; 2021-12-25)
DX: F11.20 Opioid dependence, uncomplicated (principal); F10.20 Alcohol dependence, uncomplicated; F14.20 Cocaine dependence, uncomplicated; F12.10 Cannabis abuse, uncomplicated; F17.210 Nicotine dependence, cigarettes, uncomplicated; R10.9 Unspecified abdominal pain; R19.7 Diarrhea, unspecified; M54.50 Low back pain, unspecified; G89.29 Other chronic pain; Z86.19 Personal history of other infectious and parasitic diseases

== ENCOUNTER 2021-12-25 17:39 | Inpatient (IN) | payer OTHER ==
[2021-12-25] MEDS ORDERED: ACETAMINOPHEN 1000 MG/100 ML BAG IVPB ONE (19:51)
[2021-12-25] MEDS ORDERED: SODIUM CHLORIDE 1,000 ML IV STA (19:51)
[2021-12-25] MEDS ORDERED: ACETAMINOPHEN INJECTION 100 ML IVPB ONE (20:20)
[2021-12-25 21:06] LABS: BASO % 0.3 % (0-2.0); EOS % 1.4 % (0-4.5); HEMATOCRIT 43.7 % (35.4-49); HEMOGLOBIN 13.9 GM/dL (11.7-16.9); LYMPH % 17.6 % (8-40); MCH 26.9 pg (25.7-33.7); MCHC 31.9 g/dl (32.0-35.9); MEAN CELL VOLUME 84.2 fl (80-96); MEAN PLT VOLUME 7.9 fl (7.5-11.1); MONO % 12.7 % (3.8-10.2); PLATELET COUNT 275 10^3/uL (134-434); RBC 5.18 M/mm3 (4.00-5.60); RDW 13.1 % (11.9-15.9); WHITE BLOOD COUNT 14.8 K/mm3 (4.0-10.0)
[2021-12-25 21:11] LABS: URINE APPEARANCE CLEAR; URINE BILIRUBIN NEGATIVE (NEGATIVE); URINE COLOR YELLOW; URINE GLUCOSE (UA) NEGATIVE (NEGATIVE); URINE KETONE NEGATIVE (NEGATIVE); URINE LEUK ESTERASE NEGATIVE (NEGATIVE); URINE NITRITE NEGATIVE (NEGATIVE); URINE PROTEIN NEGATIVE (NEGATIVE); URINE UROBILINOGEN 0.2 mg/dL (0.2-1.0)
[2021-12-25 21:24] LABS: ALBUMIN 3.7 g/dl (3.4-5.0); CALCIUM 9.4 mg/dL (8.5-10.1); MAGNESIUM 2.3 mg/dL (1.8-2.4)
[2021-12-25 21:27] LABS: CREATININE 0.7 mg/dL (0.55-1.3); PHOSPHOROUS 4.5 mg/dL (2.5-4.9)
[2021-12-25 21:29] LABS: BILIRUBIN,TOTAL 0.3 mg/dL (0.2-1); TOT PROT 7.6 g/dl (6.4-8.2)
[2021-12-25 21:40] LABS: COCAINE, UR NEGATIVE (NEGATIVE); OPIATES, URI NEGATIVE (NEGATIVE); PHENCYCLIDINE,URINE NEGATIVE (NEGATIVE); URINE BARBITURATES NEGATIVE (NEGATIVE)
[2021-12-25 21:42] LABS: URINE AMPHETAMINES NEGATIVE (NEGATIVE)
[2021-12-25 21:45] LABS: METHADONE, UR POSITIVE (NEGATIVE); URINE BENZODIAZEPINES POSITIVE (NEGATIVE)
[2021-12-26] MEDS ORDERED: ACETAMINOPHEN 1000 MG/100 ML BAG IVPB PRN (00:49)
[2021-12-26] MEDS ORDERED: morphine SULFATE 4 MG/ML VIAL IVPUSH PRN (00:49)
[2021-12-26] MEDS ORDERED: PROCHLORPERAZINE INJECTION 10 MG/2 ML VIAL IVPB PRN (01:16)
[2021-12-26] MEDS: SODIUM CHLORIDE 1,000 ML IV SCH ×2 (03:35→13:01)
[2021-12-26] MEDS ORDERED: cefTRIAXone SODIUM 1 GM VIAL ONE (03:45)
[2021-12-26] MEDS ORDERED: DEXTROSE 5%-WATER - 50 ML IVPB ONE (03:45)
[2021-12-26] MEDS: CEFTRIAXONE 1 GM in DEXTROSE 5%-WATER - 50 ML IVPB SCH ×2 (04:20→09:43)
[2021-12-26 04:43] VITALS: BMI 19.0
[2021-12-26] MEDS ORDERED: SODIUM CHLORIDE 1,000 ML IV STA (05:18)
[2021-12-26 08:31] LABS: BASO % 0.2 % (0-2.0); EOS % 0.7 % (0-4.5); HEMATOCRIT 39.5 % (35.4-49); HEMOGLOBIN 12.9 GM/dL (11.7-16.9); LYMPH % 11.9 % (8-40); MCH 27.1 pg (25.7-33.7); MCHC 32.6 g/dl (32.0-35.9); MEAN CELL VOLUME 83.1 fl (80-96); MONO % 10.7 % (3.8-10.2); NEUT % 76.5 % (42.8-82.8); PLATELET COUNT 233 10^3/uL (134-434); RBC 4.76 M/mm3 (4.00-5.60); RDW 13.3 % (11.9-15.9); WHITE BLOOD COUNT 14.7 K/mm3 (4.0-10.0)
[2021-12-26 08:52] LABS: CALCIUM 8.5 mg/dL (8.5-10.1)
[2021-12-26 08:54] LABS: MAGNESIUM 1.9 mg/dL (1.8-2.4)
[2021-12-26 08:56] LABS: CREATININE 0.5 mg/dL (0.55-1.3); PHOSPHOROUS 3.6 mg/dL (2.5-4.9)
[2021-12-26 08:58] LABS: BILIRUBIN,TOTAL 0.5 mg/dL (0.2-1); TOT PROT 6.4 g/dl (6.4-8.2)
[2021-12-26 09:12] LABS: ALBUMIN 2.9 g/dl (3.4-5.0)
[2021-12-26] MEDS ORDERED: ENOXAPARIN NA (PORCINE) 40 MG/0.4 ML DISP.SYRIN SQ SCH (10:00)
[2021-12-26] MEDS ORDERED: methaDONE HCL 40 MG DISPERSABLE TABLET PO SCH (12:45)
[2021-12-26] MEDS: NICOTINE 21 MG/24 HOURS TOPICAL PATCH TD SCH (12:50)
[2021-12-26] MEDS ORDERED: methaDONE HCL 40 MG DISPERSABLE TABLET ONE (12:54)
[2021-12-26] MEDS ORDERED: methaDONE HCL 10 MG TABLET ONE (12:54)
[2021-12-26] MEDS: VANCOMYCIN 250 MG/5 ML ORAL SOLUTION PO SCH ×2 (13:04→18:48)
[2021-12-27] MEDS: VANCOMYCIN 250 MG/5 ML ORAL SOLUTION PO SCH ×5 (00:32→23:37)
[2021-12-27] MEDS: SODIUM CHLORIDE 1,000 ML IV SCH ×2 (02:13→15:55)
[2021-12-27] MEDS ORDERED: methaDONE HCL 10 MG TABLET ONE (05:21)
[2021-12-27] MEDS ORDERED: methaDONE HCL 40 MG DISPERSABLE TABLET ONE (05:21)
[2021-12-27 08:55] LABS: BASO % 0.3 % (0-2.0); EOS % 1.3 % (0-4.5); HEMATOCRIT 37.9 % (35.4-49); HEMOGLOBIN 12.3 GM/dL (11.7-16.9); LYMPH % 21.7 % (8-40); MCH 27.1 pg (25.7-33.7); MCHC 32.5 g/dl (32.0-35.9); MEAN CELL VOLUME 83.2 fl (80-96); MEAN PLT VOLUME 8.2 fl (7.5-11.1); MONO % 12.1 % (3.8-10.2); NEUT % 64.6 % (42.8-82.8); PLATELET COUNT 234 10^3/uL (134-434); RBC 4.55 M/mm3 (4.00-5.60); WHITE BLOOD COUNT 10.9 K/mm3 (4.0-10.0)
[2021-12-27 09:23] LABS: BLOOD UREA NITROGEN 8.3 mg/dL (7-18)
[2021-12-27 09:26] LABS: CREATININE 0.5 mg/dL (0.55-1.3); PHOSPHOROUS 3.3 mg/dL (2.5-4.9)
[2021-12-27] MEDS ORDERED: ENOXAPARIN NA (PORCINE) 40 MG/0.4 ML DISP.SYRIN SQ SCH (10:00)
[2021-12-27] MEDS ORDERED: DEXTROSE 5%-WATER - 50 ML IVPB ONE (10:42)
[2021-12-27] MEDS ORDERED: cefTRIAXone SODIUM 1 GM VIAL ONE (10:42)
[2021-12-27] MEDS: NICOTINE 21 MG/24 HOURS TOPICAL PATCH TD SCH (11:05)
[2021-12-27] MEDS: CEFTRIAXONE 1 GM in DEXTROSE 5%-WATER - 50 ML IVPB SCH (14:03)
[2021-12-27] MEDS ORDERED: ACETAMINOPHEN 1000 MG/100 ML BAG IVPB ONE (17:10)
[2021-12-28] MEDS: SODIUM CHLORIDE 1,000 ML IV SCH ×3 (01:57→23:04)
[2021-12-28] MEDS ORDERED: methaDONE HCL 40 MG DISPERSABLE TABLET ONE (05:52)
[2021-12-28] MEDS ORDERED: methaDONE HCL 10 MG TABLET ONE (05:52)
[2021-12-28] MEDS: VANCOMYCIN 250 MG/5 ML ORAL SOLUTION PO SCH ×4 (06:02→23:04)
[2021-12-28] MEDS ORDERED: ACETAMINOPHEN 1000 MG/100 ML BAG IVPB ONE (10:00)
[2021-12-28] MEDS ORDERED: cefTRIAXone SODIUM 1 GM VIAL ONE (10:12)
[2021-12-28] MEDS ORDERED: DEXTROSE 5%-WATER - 50 ML IVPB ONE (10:12)
[2021-12-28 10:45] LABS: BASO % 0.4 % (0-2.0); HEMATOCRIT 37.4 % (35.4-49); HEMOGLOBIN 12.1 GM/dL (11.7-16.9); LYMPH % 28.5 % (8-40); MCH 27.1 pg (25.7-33.7); MCHC 32.3 g/dl (32.0-35.9); MEAN CELL VOLUME 83.8 fl (80-96); MONO % 14.3 % (3.8-10.2); NEUT % 53.8 % (42.8-82.8); PLATELET COUNT 246 10^3/uL (134-434); RBC 4.46 M/mm3 (4.00-5.60); RDW 12.7 % (11.9-15.9); WHITE BLOOD COUNT 6.1 K/mm3 (4.0-10.0)
[2021-12-28 10:50] LABS: CALCIUM 8.6 mg/dL (8.5-10.1)
[2021-12-28 10:51] LABS: BLOOD UREA NITROGEN 5.8 mg/dL (7-18); MAGNESIUM 1.9 mg/dL (1.8-2.4)
[2021-12-28 10:53] LABS: CREATININE 0.6 mg/dL (0.55-1.3)
[2021-12-28] MEDS: NICOTINE 21 MG/24 HOURS TOPICAL PATCH TD SCH (11:27)
[2021-12-28] MEDS: CEFTRIAXONE 1 GM in DEXTROSE 5%-WATER - 50 ML IVPB SCH (14:12)
[2021-12-28] MEDS ORDERED: ACETAMINOPHEN 325 MG TABLET (FP) PO PRN (16:00)
[2021-12-29] MEDS: SODIUM CHLORIDE 1,000 ML IV SCH ×2 (01:25→11:52)
[2021-12-29] MEDS ORDERED: methaDONE HCL 10 MG TABLET ONE (05:46)
[2021-12-29] MEDS ORDERED: methaDONE HCL 40 MG DISPERSABLE TABLET ONE (05:46)
[2021-12-29] MEDS: VANCOMYCIN 250 MG/5 ML ORAL SOLUTION PO SCH ×3 (05:53→17:54)
[2021-12-29] MEDS ORDERED: cefTRIAXone SODIUM 1 GM VIAL ONE (09:56)
[2021-12-29] MEDS ORDERED: DEXTROSE 5%-WATER - 50 ML IVPB ONE (09:56)
[2021-12-29] MEDS: NICOTINE 21 MG/24 HOURS TOPICAL PATCH TD SCH (09:59)
[2021-12-29 11:18] LABS: BASO % 0.5 % (0-2.0); EOS % 2.7 % (0-4.5); HEMATOCRIT 36.1 % (35.4-49); HEMOGLOBIN 12.1 GM/dL (11.7-16.9); MCH 27.7 pg (25.7-33.7); MCHC 33.4 g/dl (32.0-35.9); MEAN PLT VOLUME 7.5 fl (7.5-11.1); MONO % 12.8 % (3.8-10.2); PLATELET COUNT 252 10^3/uL (134-434); RBC 4.35 M/mm3 (4.00-5.60); RDW 13.1 % (11.9-15.9); WHITE BLOOD COUNT 4.9 K/mm3 (4.0-10.0)
[2021-12-29 11:38] LABS: BLOOD UREA NITROGEN 9.6 mg/dL (7-18); CALCIUM 8.8 mg/dL (8.5-10.1)
[2021-12-29 11:39] LABS: MAGNESIUM 1.9 mg/dL (1.8-2.4)
[2021-12-29 11:41] LABS: PHOSPHOROUS 3.5 mg/dL (2.5-4.9)
[2021-12-29 11:42] LABS: CREATININE 0.6 mg/dL (0.55-1.3)
[2021-12-29] MEDS: CEFTRIAXONE 1 GM in DEXTROSE 5%-WATER - 50 ML IVPB SCH (11:51)
[2021-12-29 17:48] LABS: HIV INTERPRETATION NEGATIVE (NEGATIVE)
[2021-12-30] MEDS: VANCOMYCIN 250 MG/5 ML ORAL SOLUTION PO SCH ×4 (01:02→17:40)
[2021-12-30] MEDS: SODIUM CHLORIDE 1,000 ML IV SCH ×2 (01:02→12:57)
[2021-12-30] MEDS ORDERED: methaDONE HCL 10 MG TABLET ONE (05:26)
[2021-12-30] MEDS ORDERED: methaDONE HCL 40 MG DISPERSABLE TABLET ONE (05:26)
[2021-12-30 10:26] LABS: BASO % 0.4 % (0-2.0); EOS % 2.8 % (0-4.5); HEMATOCRIT 40.2 % (35.4-49); LYMPH % 34.5 % (8-40); MCHC 32.2 g/dl (32.0-35.9); MEAN CELL VOLUME 83.6 fl (80-96); MEAN PLT VOLUME 8.3 fl (7.5-11.1); MONO % 12.7 % (3.8-10.2); NEUT % 49.6 % (42.8-82.8); PLATELET COUNT 300 10^3/uL (134-434); RBC 4.81 M/mm3 (4.00-5.60); RDW 13.2 % (11.9-15.9); WHITE BLOOD COUNT 5.4 K/mm3 (4.0-10.0)
[2021-12-30] MEDS ORDERED: cefTRIAXone SODIUM 1 GM VIAL ONE (10:26)
[2021-12-30] MEDS ORDERED: DEXTROSE 5%-WATER - 50 ML IVPB ONE (10:26)
[2021-12-30] MEDS: NICOTINE 21 MG/24 HOURS TOPICAL PATCH TD SCH (10:32)
[2021-12-30 10:43] LABS: CALCIUM 9.3 mg/dL (8.5-10.1)
[2021-12-30 10:44] LABS: ALBUMIN 3.5 g/dl (3.4-5.0); BLOOD UREA NITROGEN 9.8 mg/dL (7-18)
[2021-12-30 10:46] LABS: CREATININE 0.6 mg/dL (0.55-1.3); PHOSPHOROUS 3.3 mg/dL (2.5-4.9)
[2021-12-30 10:47] LABS: BILIRUBIN,TOTAL 0.3 mg/dL (0.2-1)
[2021-12-30 10:48] LABS: TOT PROT 7.3 g/dl (6.4-8.2)
[2021-12-30] MEDS: CEFTRIAXONE 1 GM in DEXTROSE 5%-WATER - 50 ML IVPB SCH (11:29)
[2021-12-30] MEDS ORDERED: PEG 3350/NA SULF BICARB CL/KCL 4000 ML SOLN.RECON PO ONE (12:00)
[2021-12-30] MEDS ORDERED: BISACODYL 5 MG TABLET.DR (FP) PO ONE (20:00)
[2021-12-31] MEDS: VANCOMYCIN 250 MG/5 ML ORAL SOLUTION PO SCH ×5 (00:23→23:06)
[2021-12-31] MEDS: SODIUM CHLORIDE 1,000 ML IV SCH ×2 (00:24→14:30)
[2021-12-31] MEDS ORDERED: methaDONE HCL 40 MG DISPERSABLE TABLET ONE (05:38)
[2021-12-31] MEDS ORDERED: methaDONE HCL 10 MG TABLET ONE (05:39)
[2021-12-31 10:15] LABS: BASO % 0.5 % (0-2.0); EOS % 1.9 % (0-4.5); HEMATOCRIT 41.7 % (35.4-49); HEMOGLOBIN 13.3 GM/dL (11.7-16.9); MCH 26.8 pg (25.7-33.7); MCHC 31.9 g/dl (32.0-35.9); MEAN PLT VOLUME 7.9 fl (7.5-11.1); MONO % 11.3 % (3.8-10.2); NEUT % 55.3 % (42.8-82.8); PLATELET COUNT 322 10^3/uL (134-434); RBC 4.96 M/mm3 (4.00-5.60); RDW 12.6 % (11.9-15.9); WHITE BLOOD COUNT 6.3 K/mm3 (4.0-10.0)
[2021-12-31 10:17] LABS: INR 1.11 (0.83-1.09); PROTHROMBIN TIME (PATIENT) 12.8 SEC (9.7-13.0)
[2021-12-31] MEDS ORDERED: DEXTROSE 5%-WATER - 50 ML IVPB ONE (11:52)
[2021-12-31] MEDS ORDERED: cefTRIAXone SODIUM 1 GM VIAL ONE (11:52)
[2021-12-31] MEDS: CEFTRIAXONE 1 GM in DEXTROSE 5%-WATER - 50 ML IVPB SCH (12:14)
[2021-12-31] MEDS: NICOTINE 21 MG/24 HOURS TOPICAL PATCH TD SCH (12:18)
[2021-12-31 12:19] LABS: BLOOD UREA NITROGEN 6.7 mg/dL (7-18)
[2021-12-31 12:23] LABS: CREATININE 0.7 mg/dL (0.55-1.3)
[2022-01-01] MEDS: SODIUM CHLORIDE 1,000 ML IV SCH (01:02)
[2022-01-01] MEDS ORDERED: methaDONE HCL 40 MG DISPERSABLE TABLET ONE (04:58)
[2022-01-01] MEDS ORDERED: methaDONE HCL 10 MG TABLET ONE (04:58)
[2022-01-01] MEDS: VANCOMYCIN 250 MG/5 ML ORAL SOLUTION PO SCH ×2 (05:02→11:58)
[2022-01-01] MEDS: NICOTINE 21 MG/24 HOURS TOPICAL PATCH TD SCH (09:27)
[2022-01-01] MEDS ORDERED: cefTRIAXone SODIUM 1 GM VIAL ONE (09:28)
[2022-01-01] MEDS ORDERED: DEXTROSE 5%-WATER - 50 ML IVPB ONE (09:28)
[2022-01-01] MEDS: CEFTRIAXONE 1 GM in DEXTROSE 5%-WATER - 50 ML IVPB SCH (09:35)
[2022-01-01] MEDS ORDERED: ENOXAPARIN NA (PORCINE) 40 MG/0.4 ML DISP.SYRIN SQ SCH (10:00)
[2022-01-01 12:27] VITALS: BP 124/72; PULSE 73; TEMP 98.5
== END 2022-01-01 16:12 | disposition other institution (70) | DRG 248 ==
LOC: JER 17:39 → JERBED 23:47 → J5S 12-26 03:28
PROVIDERS: ADMIT Hospitalist; ATTEND Internal Medicine
PROC: 0DBL8ZX Excision of Transverse Colon, Via Natural or Artificial Opening Endoscopic, Diagnostic (ICD-10-PCS; principal; 2021-12-31 11:30)
DX: A04.72 Enterocolitis due to Clostridium difficile, not specified as recurrent (principal); F11.20 Opioid dependence, uncomplicated; F19.20 Other psychoactive substance dependence, uncomplicated; F17.210 Nicotine dependence, cigarettes, uncomplicated; F32.A Depression, unspecified; M51.26 Other intervertebral disc displacement, lumbar region; R63.4 Abnormal weight loss; Z68.1 Body mass index [BMI] 19.9 or less, adult; K04.7 Periapical abscess without sinus; K64.8 Other hemorrhoids; K63.3 Ulcer of intestine
CPT/HCPCS: 36415; 74174-TC; 74177-TC; 80048; 80053; 80307; 81003; 82150; 82272; 83605; 83615; 83735; 83993; 84100; 84443; 85025; 85610; 85651; 86140; 86850; 86900; 86901; 87045; 87046; 87086; 87186; 87205; 87324; 87389; 87449; 87493; 88305-TC; 93005; 93010; 99285-25; Q9967

== ENCOUNTER 2022-01-01 16:38 | Inpatient (IN) | payer OTHER ==
[2022-01-01] MEDS ORDERED: MAGNESIUM CITRATE 300 ML BOTTLE PO PRN (17:33)
[2022-01-01] MEDS ORDERED: guaiFENesin 200 MG/10 ML 10 ML UNIT-DOSE CUPS PO PRN (17:33)
[2022-01-01] MEDS ORDERED: ACETAMINOPHEN 325 MG TABLET (FP) PO PRN (17:33)
[2022-01-01] MEDS ORDERED: MAGNESIUM HYDROX 2400MG/30ML ORAL SUSPENSION 30 ML CUP PO PRN (17:33)
[2022-01-01] MEDS ORDERED: LOPERAMIDE HCL 2 MG CAPSULE PO PRN (17:33)
[2022-01-01] MEDS ORDERED: IBUPROFEN 400 MG TABLET (FP) PO PRN (17:33)
[2022-01-01] MEDS ORDERED: P-EPHED 60MG/TRIPROLIDI 2.5MG TABLET PO PRN (17:33)
[2022-01-01] MEDS ORDERED: MAG HYDROX/AL HYDROX/SIMETH 30 ML UNIT-DOSE CUP PO PRN (17:33)
[2022-01-01] MEDS ORDERED: methaDONE HCL 40 MG DISPERSABLE TABLET PO SCH (17:45)
[2022-01-01 17:51] VITALS: BMI 19.2
[2022-01-01] MEDS: PRENATAL VITAMINS W/ FOLIC ACID TABLET (FP) PO SCH (18:49)
[2022-01-01] MEDS: hydrOXYzine PAMOATE 25 MG CAPSULE (FP) PO SCH ×2 (18:49→21:26)
[2022-01-01] MEDS: NICOTINE 7 MG/24 HOURS TOPICAL PATCH TD SCH (18:49)
[2022-01-01] MEDS: THIAMINE HCL 100 MG TABLET (FP) PO SCH (21:25)
[2022-01-01] MEDS: MELATONIN 5 MG TABLETS PO SCH (21:25)
[2022-01-01] MEDS: VANCOMYCIN 250 MG/5 ML ORAL SOLUTION PO SCH ×2 (21:26→21:28)
[2022-01-02] MEDS: hydrOXYzine PAMOATE 25 MG CAPSULE (FP) PO SCH ×5 (07:07→21:23)
[2022-01-02 07:31] VITALS: TEMP 98.2
[2022-01-02] MEDS: NICOTINE 10 MG CARTRIDGE (INHALER) IH PRN ×2 (08:05→13:38)
[2022-01-02] MEDS ORDERED: methaDONE HCL 40 MG DISPERSABLE TABLET ONE (09:24)
[2022-01-02] MEDS ORDERED: methaDONE HCL 10 MG TABLET ONE (09:24)
[2022-01-02 09:54] VITALS: BP 132/77; PULSE 69
[2022-01-02] MEDS: NICOTINE 7 MG/24 HOURS TOPICAL PATCH TD SCH (10:26)
[2022-01-02] MEDS: PRENATAL VITAMINS W/ FOLIC ACID TABLET (FP) PO SCH (10:26)
[2022-01-02] MEDS: VANCOMYCIN 250 MG/5 ML ORAL SOLUTION PO SCH ×4 (10:29→21:22)
[2022-01-02 19:57] LABS: URINE APPEARANCE CLEAR; URINE BILIRUBIN NEGATIVE (NEGATIVE); URINE COLOR YELLOW; URINE GLUCOSE (UA) NEGATIVE (NEGATIVE); URINE KETONE NEGATIVE (NEGATIVE); URINE LEUK ESTERASE NEGATIVE (NEGATIVE); URINE NITRITE NEGATIVE (NEGATIVE); URINE PROTEIN NEGATIVE (NEGATIVE); URINE UROBILINOGEN 0.2 mg/dL (0.2-1.0)
[2022-01-02] MEDS: MELATONIN 5 MG TABLETS PO SCH (21:21)
[2022-01-02] MEDS: THIAMINE HCL 100 MG TABLET (FP) PO SCH (21:23)
[2022-01-02] MEDS ORDERED: MIRTAZAPINE 15 MG TABLET (FP) PO SCH (22:00)
[2022-01-03] MEDS: hydrOXYzine PAMOATE 25 MG CAPSULE (FP) PO SCH (06:36)
[2022-01-03] MEDS ORDERED: methaDONE HCL 10 MG TABLET PO ONE (08:14)
[2022-01-03] MEDS ORDERED: methaDONE HCL 10 MG TABLET ONE (08:33)
[2022-01-03] MEDS ORDERED: methaDONE HCL 40 MG DISPERSABLE TABLET ONE (08:34)
[2022-01-03 14:09] LABS: SARS-CoV-2 NAA Not Detected (Not Detected)
== END 2022-01-03 08:43 | disposition home or self-care (01) | DRG 772 ==
LOC: YASAS 16:38 → Y3W 18:11
PROVIDERS: ADMIT Allergy & Immunology; ATTEND Allergy & Immunology
PROC: HZ42ZZZ Group Counseling for Substance Abuse Treatment, Cognitive-Behavioral (ICD-10-PCS; principal; 2022-01-01)
DX: F10.20 Alcohol dependence, uncomplicated (principal); F14.20 Cocaine dependence, uncomplicated; F11.20 Opioid dependence, uncomplicated; F17.210 Nicotine dependence, cigarettes, uncomplicated; F19.24 Other psychoactive substance dependence with psychoactive substance-induced mood disorder; F32.A Depression, unspecified; G89.29 Other chronic pain; M51.26 Other intervertebral disc displacement, lumbar region; B96.89 Other specified bacterial agents as the cause of diseases classified elsewhere; Z86.19 Personal history of other infectious and parasitic diseases; Z59.01 Sheltered homelessness
CPT/HCPCS: 36415; 81003; 86780; C9803-CS; U0003; U0005

== ENCOUNTER 2022-02-15 15:09 | Inpatient (IN) | payer OTHER ==
[2022-02-15 16:24] VITALS: BMI 21.2
[2022-02-15] MEDS ORDERED: MELATONIN 5 MG TABLETS PO PRN (21:20)
[2022-02-15] MEDS ORDERED: BENZOCAINE/MENTHOL (CHLORASEPTIC ) LOZENGE MM PRN (21:20)
[2022-02-15] MEDS ORDERED: MAGNESIUM HYDROX 2400MG/30ML ORAL SUSPENSION 30 ML CUP PO PRN (21:20)
[2022-02-15] MEDS ORDERED: DICYCLOMINE HCL 10 MG CAPSULE PO PRN (21:20)
[2022-02-15] MEDS ORDERED: LOPERAMIDE HCL 2 MG CAPSULE PO PRN (21:20)
[2022-02-15] MEDS ORDERED: MAG HYDROX/AL HYDROX/SIMETH 30 ML UNIT-DOSE CUP PO PRN (21:20)
[2022-02-15] MEDS ORDERED: hydrOXYzine PAMOATE 25 MG CAPSULE (FP) PO PRN (21:20)
[2022-02-15] MEDS ORDERED: ONDANSETRON *ODT* 4 MG TABLET SL PRN (21:20)
[2022-02-15] MEDS ORDERED: BISMUTH SUBSALICYLATE 524 MG/30 ML PO PRN (21:20)
[2022-02-15] MEDS ORDERED: MAGNESIUM CITRATE 300 ML BOTTLE PO PRN (21:20)
[2022-02-15] MEDS ORDERED: ACETAMINOPHEN 325 MG TABLET (FP) PO PRN ×2 (21:20)
[2022-02-16] MEDS ORDERED: diazePAM 5 MG TABLET ONE ×3 (01:13→09:55)
[2022-02-16] MEDS: THIAMINE HCL 100 MG TABLET (FP) PO SCH ×2 (01:15→22:53)
[2022-02-16] MEDS: diazePAM 5 MG TABLET PO SCH ×5 (01:15→22:53)
[2022-02-16] MEDS ORDERED: IBUPROFEN 600 MG TABLET (FP) PO ONE (01:16)
[2022-02-16] MEDS: IBUPROFEN 600 MG TABLET (FP) PO PRN ×3 (01:16→22:51)
[2022-02-16 10:24] LABS: HEMATOCRIT 41.1 % (35.4-49); HEMOGLOBIN 13.3 GM/dL (11.7-16.9); MCH 27.2 pg (25.7-33.7); MCHC 32.4 g/dl (32.0-35.9); MEAN CELL VOLUME 84.1 fl (80-96); MEAN PLT VOLUME 7.7 fl (7.5-11.1); PLATELET COUNT 248 10^3/uL (134-434); RBC 4.88 M/mm3 (4.00-5.60); RDW 12.9 % (11.9-15.9); WHITE BLOOD COUNT 6.3 K/mm3 (4.0-10.0)
[2022-02-16 10:32] LABS: ALBUMIN 3.2 g/dl (3.4-5.0); BLOOD UREA NITROGEN 17.4 mg/dL (7-18); CALCIUM 9.3 mg/dL (8.5-10.1)
[2022-02-16 10:35] LABS: CREATININE 0.6 mg/dL (0.55-1.3)
[2022-02-16 10:37] LABS: BILIRUBIN,TOTAL 0.2 mg/dL (0.2-1); TOT PROT 6.4 g/dl (6.4-8.2)
[2022-02-16] MEDS: PRENATAL VITAMINS W/ FOLIC ACID TABLET (FP) PO SCH (10:41)
[2022-02-16 12:27] LABS: HIV INTERPRETATION NEGATIVE (NEGATIVE)
[2022-02-16] MEDS ORDERED: methaDONE HCL 10 MG TABLET PO ONE (12:54)
[2022-02-16] MEDS ORDERED: methaDONE HCL 40 MG DISPERSABLE TABLET PO SCH (14:15)
[2022-02-16] MEDS ORDERED: methaDONE HCL 40 MG DISPERSABLE TABLET ONE (14:38)
[2022-02-16] MEDS ORDERED: methaDONE HCL 10 MG TABLET ONE (14:38)
[2022-02-16] MEDS: diazePAM 5 MG TABLET PO PRN (15:32)
[2022-02-16] MEDS: NICOTINE 10 MG CARTRIDGE (INHALER) IH PRN ×2 (18:40→22:54)
[2022-02-16] MEDS: METHOCARBAMOL 500 MG TABLET PO PRN (22:51)
[2022-02-16] MEDS: BENZOCAINE 20 % GEL TUBE MM PRN (23:18)
[2022-02-17] MEDS ORDERED: methaDONE HCL 10 MG TABLET ONE (04:23)
[2022-02-17] MEDS ORDERED: methaDONE HCL 40 MG DISPERSABLE TABLET ONE (04:23)
[2022-02-17] MEDS: diazePAM 5 MG TABLET PO SCH ×3 (05:38→23:16)
[2022-02-17] MEDS: diazePAM 5 MG TABLET PO PRN ×2 (09:43→13:28)
[2022-02-17] MEDS: PRENATAL VITAMINS W/ FOLIC ACID TABLET (FP) PO SCH (09:44)
[2022-02-17] MEDS: BENZOCAINE 20 % GEL TUBE MM PRN ×2 (11:51→18:11)
[2022-02-17] MEDS: IBUPROFEN 400 MG TABLET (FP) PO PRN ×2 (13:26→20:41)
[2022-02-17] MEDS: METHOCARBAMOL 500 MG TABLET PO PRN (18:07)
[2022-02-17] MEDS: IBUPROFEN 600 MG TABLET (FP) PO PRN (18:07)
[2022-02-17] MEDS ORDERED: LIDOCAINE VISCOUS 2% ORAL/TOP 15 ML UNIT-DOSE CUP MM PRN (20:41)
[2022-02-17] MEDS ORDERED: BENZOCAINE 20 % GEL TUBE MM PRN (20:43)
[2022-02-17] MEDS: THIAMINE HCL 100 MG TABLET (FP) PO SCH (23:16)
[2022-02-18] MEDS ORDERED: methaDONE HCL 40 MG DISPERSABLE TABLET ONE (04:41)
[2022-02-18] MEDS ORDERED: methaDONE HCL 10 MG TABLET ONE (04:41)
[2022-02-18] MEDS: diazePAM 5 MG TABLET PO SCH ×2 (06:13→19:44)
[2022-02-18] MEDS: diazePAM 5 MG TABLET PO PRN ×2 (10:06→20:08)
[2022-02-18] MEDS: PRENATAL VITAMINS W/ FOLIC ACID TABLET (FP) PO SCH (10:06)
[2022-02-18] MEDS: NICOTINE 10 MG CARTRIDGE (INHALER) IH PRN (20:16)
[2022-02-18] MEDS: THIAMINE HCL 100 MG TABLET (FP) PO SCH (22:30)
[2022-02-18] MEDS: METHOCARBAMOL 500 MG TABLET PO PRN (22:30)
[2022-02-19] MEDS ORDERED: methaDONE HCL 10 MG TABLET ONE (04:24)
[2022-02-19] MEDS ORDERED: methaDONE HCL 40 MG DISPERSABLE TABLET ONE (04:25)
[2022-02-19] MEDS ORDERED: diazePAM 5 MG TABLET PO ONE (06:00)
[2022-02-19] MEDS: PRENATAL VITAMINS W/ FOLIC ACID TABLET (FP) PO SCH (10:40)
[2022-02-19 13:02] VITALS: BP 128/81; PULSE 75; TEMP 98.6
== END 2022-02-19 13:04 | disposition home or self-care (01) | DRG 773 ==
LOC: YASAS 15:09 → Y3N 02-16 12:31
PROVIDERS: ADMIT Allergy & Immunology; ATTEND Surgery
PROC: HZ2ZZZZ Detoxification Services for Substance Abuse Treatment (ICD-10-PCS; principal; 2022-02-16)
DX: F10.230 Alcohol dependence with withdrawal, uncomplicated (principal); F11.20 Opioid dependence, uncomplicated; F14.20 Cocaine dependence, uncomplicated; F17.210 Nicotine dependence, cigarettes, uncomplicated; B18.2 Chronic viral hepatitis C; M54.59 Other low back pain; G89.29 Other chronic pain
CPT/HCPCS: 36415; 80053; 85027; 86780; 87389; C9803-CS; U0003; U0005

== ENCOUNTER 2022-06-17 14:05 | Inpatient (IN) | payer OTHER ==
[2022-06-17 14:55] VITALS: BMI 20.5
[2022-06-17] MEDS ORDERED: BENZOCAINE/MENTHOL (CHLORASEPTIC ) LOZENGE MM PRN (17:25)
[2022-06-17] MEDS ORDERED: BISMUTH SUBSALICYLATE 524 MG/30 ML PO PRN (17:25)
[2022-06-17] MEDS ORDERED: IBUPROFEN 600 MG TABLET (FP) PO PRN (17:25)
[2022-06-17] MEDS ORDERED: MAGNESIUM CITRATE 300 ML BOTTLE PO PRN (17:25)
[2022-06-17] MEDS ORDERED: IBUPROFEN 400 MG TABLET (FP) PO PRN (17:25)
[2022-06-17] MEDS ORDERED: MAG HYDROX/AL HYDROX/SIMETH 30 ML UNIT-DOSE CUP PO PRN (17:25)
[2022-06-17] MEDS ORDERED: MAGNESIUM HYDROX 2400MG/30ML ORAL SUSPENSION 30 ML CUP PO PRN (17:25)
[2022-06-17] MEDS ORDERED: LOPERAMIDE HCL 2 MG CAPSULE PO PRN (17:25)
[2022-06-17] MEDS ORDERED: ONDANSETRON *ODT* 4 MG TABLET SL PRN (17:25)
[2022-06-17] MEDS ORDERED: ACETAMINOPHEN 325 MG TABLET (FP) PO PRN ×2 (17:25)
[2022-06-17] MEDS ORDERED: DICYCLOMINE HCL 10 MG CAPSULE PO PRN (17:25)
[2022-06-17] MEDS ORDERED: NALOXONE HCL (KLOXXADO) 8 MG SPRAY NS PRN (17:25)
[2022-06-17] MEDS ORDERED: hydrOXYzine PAMOATE 25 MG CAPSULE (FP) PO PRN (17:25)
[2022-06-17] MEDS: PRENATAL VITAMINS W/ FOLIC ACID TABLET (FP) PO SCH (18:34)
[2022-06-17] MEDS: diazePAM 5 MG TABLET PO SCH ×2 (18:34→22:13)
[2022-06-17] MEDS: THIAMINE HCL 100 MG TABLET (FP) PO SCH (22:13)
[2022-06-17] MEDS: MELATONIN 5 MG TABLETS PO SCH (22:14)
[2022-06-18] MEDS: diazePAM 5 MG TABLET PO SCH ×4 (05:21→22:35)
[2022-06-18] MEDS ORDERED: methaDONE HCL 10 MG TABLET PO SCH (10:00)
[2022-06-18] MEDS: PRENATAL VITAMINS W/ FOLIC ACID TABLET (FP) PO SCH (10:09)
[2022-06-18] MEDS: NICOTINE POLACRILEX 2 MG GUM BUC PRN (10:13)
[2022-06-18] MEDS: diazePAM 5 MG TABLET PO PRN (15:12)
[2022-06-18 15:24] LABS: HEMATOCRIT 43.8 % (35.4-49); HEMOGLOBIN 13.7 GM/dL (11.7-16.9); MCHC 31.4 g/dl (32.0-35.9); MEAN CELL VOLUME 86.1 fl (80-96); MEAN PLT VOLUME 8.3 fl (7.5-11.1); PLATELET COUNT 219 10^3/uL (134-434); RBC 5.09 M/mm3 (4.00-5.60); RDW 14.4 % (11.9-15.9); WHITE BLOOD COUNT 6.5 K/mm3 (4.0-10.0)
[2022-06-18 18:07] LABS: ALBUMIN 3.4 g/dl (3.4-5.0); BLOOD UREA NITROGEN 16.8 mg/dL (7-18)
[2022-06-18 18:08] LABS: CREATININE 0.7 mg/dL (0.55-1.3)
[2022-06-18 18:10] LABS: CALCIUM 9.3 mg/dL (8.5-10.1); TOT PROT 7.1 g/dl (6.4-8.2)
[2022-06-18 18:15] LABS: BILIRUBIN,TOTAL 0.2 mg/dL (0.2-1)
[2022-06-18] MEDS: MIRTAZAPINE 15 MG TABLET (FP) PO SCH (22:34)
[2022-06-18] MEDS: THIAMINE HCL 100 MG TABLET (FP) PO SCH (22:35)
[2022-06-18] MEDS: MELATONIN 5 MG TABLETS PO SCH (22:35)
[2022-06-19] MEDS: diazePAM 5 MG TABLET PO SCH ×3 (05:38→21:20)
[2022-06-19] MEDS: PRENATAL VITAMINS W/ FOLIC ACID TABLET (FP) PO SCH (10:08)
[2022-06-19] MEDS: diazePAM 5 MG TABLET PO PRN (10:09)
[2022-06-19] MEDS: METHOCARBAMOL 500 MG TABLET PO PRN (10:09)
[2022-06-19] MEDS: NICOTINE POLACRILEX 2 MG GUM BUC PRN (10:12)
[2022-06-19] MEDS: NICOTINE 10 MG CARTRIDGE (INHALER) IH PRN (17:43)
[2022-06-19] MEDS: THIAMINE HCL 100 MG TABLET (FP) PO SCH (21:20)
[2022-06-19] MEDS: MELATONIN 5 MG TABLETS PO SCH (21:20)
[2022-06-19] MEDS: MIRTAZAPINE 15 MG TABLET (FP) PO SCH (21:20)
[2022-06-20] MEDS: diazePAM 5 MG TABLET PO SCH ×2 (06:13→17:34)
[2022-06-20] MEDS: diazePAM 5 MG TABLET PO PRN ×2 (10:16→14:35)
[2022-06-20] MEDS: METHOCARBAMOL 500 MG TABLET PO PRN (10:17)
[2022-06-20] MEDS: PRENATAL VITAMINS W/ FOLIC ACID TABLET (FP) PO SCH (10:17)
[2022-06-20] MEDS: NICOTINE POLACRILEX 2 MG GUM BUC PRN (12:36)
[2022-06-20] MEDS: NICOTINE 10 MG CARTRIDGE (INHALER) IH PRN (14:34)
[2022-06-20 17:04] VITALS: BP 107/53; PULSE 61; RESP 18; TEMP 98
[2022-06-21] MEDS ORDERED: diazePAM 5 MG TABLET PO ONE (06:00)
== END 2022-06-20 19:15 | disposition home or self-care (01) | DRG 773 ==
LOC: YASAS 14:05 → Y6N 17:15
PROVIDERS: ADMIT Allergy & Immunology; ATTEND Surgery
PROC: HZ2ZZZZ Detoxification Services for Substance Abuse Treatment (ICD-10-PCS; principal; 2022-06-17)
DX: F13.230 Sedative, hypnotic or anxiolytic dependence with withdrawal, uncomplicated (principal); F11.20 Opioid dependence, uncomplicated; F14.20 Cocaine dependence, uncomplicated; F12.20 Cannabis dependence, uncomplicated; F17.210 Nicotine dependence, cigarettes, uncomplicated; F19.282 Other psychoactive substance dependence with psychoactive substance-induced sleep disorder; F19.24 Other psychoactive substance dependence with psychoactive substance-induced mood disorder; F32.A Depression, unspecified; M51.26 Other intervertebral disc displacement, lumbar region; G89.29 Other chronic pain; Z86.19 Personal history of other infectious and parasitic diseases; Z56.0 Unemployment, unspecified; Z59.01 Sheltered homelessness
CPT/HCPCS: 36415; 80053; 85027; 86780; 87811; C9803-CS; U0003; U0005

== ENCOUNTER 2023-10-08 14:07 | Inpatient (IN) | payer OTHER ==
[2023-10-08 15:35] VITALS: BMI 17.2
[2023-10-08] MEDS ORDERED: LOPERAMIDE HCL 2 MG CAPSULE PO PRN (18:17)
[2023-10-08] MEDS ORDERED: ACETAMINOPHEN 325 MG TABLET (FP) PO PRN (18:17)
[2023-10-08] MEDS ORDERED: BISMUTH SUBSALICYLATE 524 MG/30 ML PO PRN (18:17)
[2023-10-08] MEDS ORDERED: NALOXONE HCL (KLOXXADO) 8 MG SPRAY NS PRN (18:17)
[2023-10-08] MEDS ORDERED: DICYCLOMINE HCL 10 MG CAPSULE PO PRN (18:17)
[2023-10-08] MEDS ORDERED: BENZONATATE 200 MG CAPSULE PO PRN (18:17)
[2023-10-08] MEDS ORDERED: METHOCARBAMOL 500 MG TABLET PO PRN (18:17)
[2023-10-08] MEDS ORDERED: POLYETHYLENE GLYCOL (HEALTHYLAX) 3350 17 GM PACKET PO PRN (18:17)
[2023-10-08] MEDS ORDERED: ONDANSETRON *ODT* 4 MG TABLET SL PRN (18:17)
[2023-10-08] MEDS ORDERED: BENZOCAINE/MENTHOL (CHLORASEPTIC ) LOZENGE MM PRN (18:17)
[2023-10-08] MEDS ORDERED: guaiFENesin 600 MG TABLET.ER (FP) PO PRN (18:17)
[2023-10-08] MEDS ORDERED: MAGNESIUM HYDROX 2400MG/30ML ORAL SUSPENSION 30 ML CUP PO PRN (18:17)
[2023-10-08] MEDS ORDERED: NALOXONE HCL 0.4 MG/ML VIAL IM PRN (18:17)
[2023-10-08] MEDS ORDERED: IBUPROFEN 400 MG TABLET (FP) PO PRN (18:17)
[2023-10-08] MEDS: IBUPROFEN 600 MG TABLET (FP) PO PRN (19:15)
[2023-10-08] MEDS: MELATONIN 5 MG TABLETS PO SCH (22:56)
[2023-10-08] MEDS: THIAMINE HCL 100 MG TABLET (FP) PO SCH (22:57)
[2023-10-09] MEDS: methaDONE HCL 40 MG DISPERSABLE TABLET PO ONE (09:23)
[2023-10-09] MEDS: PRENATAL VITAMINS W/ FOLIC ACID TABLET (FP) PO SCH (09:25)
[2023-10-09] MEDS: diazePAM 5 MG TABLET PO SCH (10:10)
[2023-10-09] MEDS: NICOTINE POLACRILEX 2 MG GUM BUC PRN (10:11)
[2023-10-09 10:56] LABS: HEMATOCRIT 40.2 % (35.4-49); HEMOGLOBIN 12.9 GM/dL (11.7-16.9); MCH 27.7 pg (25.7-33.7); MEAN CELL VOLUME 86.6 fl (80-96); MEAN PLT VOLUME 8.5 fl (7.5-11.1); PLATELET COUNT 236 10^3/uL (134-434); RBC 4.64 M/mm3 (4.00-5.60); RDW 13.1 % (11.9-15.9); WHITE BLOOD COUNT 5.3 K/mm3 (4.0-10.0)
[2023-10-09 10:57] LABS: CHLORIDE 106 mmol/L (98-107); POTASSIUM 5.2 mmol/L (3.5-5.1); SODIUM 140 mmol/L (136-145)
[2023-10-09 11:01] LABS: CALCIUM 8.6 mg/dL (8.5-10.1); GLUCOSE,RANDOM 87 mg/dL (74-106)
[2023-10-09 11:02] LABS: ANION GAP 2 mmol/L (4-13); BLOOD UREA NITROGEN 9.2 mg/dL (7-18); CO2 32 mmol/L (21-32)
[2023-10-09 11:04] LABS: CREATININE 0.7 mg/dL (0.55-1.3); SGOT/AST 81 U/L (15-37)
[2023-10-09 11:05] LABS: SGPT/ALT 70 U/L (13-61)
[2023-10-09 11:06] LABS: BILIRUBIN,TOTAL 0.4 mg/dL (0.2-1)
[2023-10-09 11:07] LABS: ALK PHOS 92 U/L (45-117); TOT PROT 6.8 g/dl (6.4-8.2)
[2023-10-09] MEDS: diazePAM 5 MG TABLET PO PRN (14:40)
[2023-10-10] MEDS: methaDONE HCL 40 MG DISPERSABLE TABLET PO SCH (06:19)
[2023-10-10] MEDS: hydrOXYzine PAMOATE 25 MG CAPSULE (FP) PO PRN (13:13)
[2023-10-10] MEDS: MIRTAZAPINE 15 MG TABLET (FP) PO SCH (22:38)
[2023-10-11] MEDS: diazePAM 5 MG TABLET PO SCH (05:47)
[2023-10-11 13:49] LABS: POTASSIUM 3.8 mmol/L (3.5-5.1)
[2023-10-11 13:52] LABS: CALCIUM 8.9 mg/dL (8.5-10.1)
[2023-10-11 13:53] LABS: BLOOD UREA NITROGEN 7.2 mg/dL (7-18)
[2023-10-11 13:57] LABS: CREATININE 0.7 mg/dL (0.55-1.3)
[2023-10-12] MEDS: diazePAM 5 MG TABLET PO SCH (06:10)
[2023-10-12] MEDS: MAG HYDROX/AL HYDROX/SIMETH 30 ML UNIT-DOSE CUP PO PRN (19:53)
[2023-10-13] MEDS: diazePAM 5 MG TABLET PO ONE (06:13)
[2023-10-13 09:10] VITALS: BP 102/64; PULSE 66; RESP 18; TEMP 98.9
== END 2023-10-13 11:28 | disposition other institution (70) | DRG 773 ==
LOC: YASAS 14:07 → Y6N 18:13 → Y3N 10-09 21:04
PROVIDERS: ADMIT Allergy & Immunology; ATTEND Allergy & Immunology
PROC: HZ2ZZZZ Detoxification Services for Substance Abuse Treatment (ICD-10-PCS; principal; 2023-10-08)
DX: F10.230 Alcohol dependence with withdrawal, uncomplicated (principal); F11.20 Opioid dependence, uncomplicated; F14.20 Cocaine dependence, uncomplicated; F17.210 Nicotine dependence, cigarettes, uncomplicated; F19.24 Other psychoactive substance dependence with psychoactive substance-induced mood disorder; F41.9 Anxiety disorder, unspecified; F32.A Depression, unspecified; M54.50 Low back pain, unspecified; G89.29 Other chronic pain; Z86.19 Personal history of other infectious and parasitic diseases; Z86.59 Personal history of other mental and behavioral disorders; Z91.51 Personal history of suicidal behavior; Z56.0 Unemployment, unspecified; Z59.00 Homelessness unspecified
CPT/HCPCS: 36415; 80048; 80053; 80307; 85027; 86780; 87635

== ENCOUNTER 2023-10-13 11:31 | Inpatient (IN) | payer OTHER ==
[2023-10-13] MEDS ORDERED: BENZOCAINE/MENTHOL (CHLORASEPTIC ) LOZENGE MM PRN (12:40)
[2023-10-13] MEDS ORDERED: BENZONATATE 200 MG CAPSULE PO PRN (12:40)
[2023-10-13] MEDS ORDERED: ACETAMINOPHEN 325 MG TABLET (FP) PO PRN (12:40)
[2023-10-13] MEDS ORDERED: NALOXONE HCL 0.4 MG/ML VIAL IM PRN (12:40)
[2023-10-13] MEDS ORDERED: LOPERAMIDE HCL 2 MG CAPSULE PO PRN (12:40)
[2023-10-13] MEDS ORDERED: NALOXONE HCL (KLOXXADO) 8 MG SPRAY NS PRN (12:40)
[2023-10-13] MEDS ORDERED: hydrOXYzine PAMOATE 25 MG CAPSULE (FP) PO PRN (12:40)
[2023-10-13] MEDS ORDERED: IBUPROFEN 400 MG TABLET (FP) PO PRN (12:40)
[2023-10-13] MEDS ORDERED: POLYETHYLENE GLYCOL (HEALTHYLAX) 3350 17 GM PACKET PO PRN (12:40)
[2023-10-13] MEDS ORDERED: guaiFENesin 600 MG TABLET.ER (FP) PO PRN (12:40)
[2023-10-13] MEDS ORDERED: MAGNESIUM HYDROX 2400MG/30ML ORAL SUSPENSION 30 ML CUP PO PRN (12:40)
[2023-10-13] MEDS: THIAMINE HCL 100 MG TABLET (FP) PO SCH (21:08)
[2023-10-13] MEDS: MELATONIN 5 MG TABLETS PO SCH (21:08)
[2023-10-13] MEDS: MIRTAZAPINE 15 MG TABLET (FP) PO SCH (21:09)
[2023-10-13] MEDS ORDERED: MIRTAZAPINE 15 MG TABLET (FP) PO ONE (22:00)
[2023-10-14] MEDS: methaDONE HCL 40 MG DISPERSABLE TABLET PO SCH (06:29)
[2023-10-14] MEDS: LIDOCAINE 4% PATCH TP SCH (09:15)
[2023-10-14] MEDS: PRENATAL VITAMINS W/ FOLIC ACID TABLET (FP) PO SCH (09:15)
[2023-10-14] MEDS: NICOTINE POLACRILEX 2 MG GUM BUC PRN (13:01)
[2023-10-14] MEDS: MIRTAZAPINE 30 MG TABLET PO SCH (21:09)
[2023-10-15] MEDS: GABAPENTIN 100 MG CAPSULE PO SCH (13:36)
[2023-10-15] MEDS: MAG HYDROX/AL HYDROX/SIMETH 30 ML UNIT-DOSE CUP PO PRN (15:16)
[2023-10-16 06:55] VITALS: RESP 16
[2023-10-17] MEDS: IBUPROFEN 600 MG TABLET (FP) PO PRN (21:29)
[2023-10-20 06:37] VITALS: BP 118/83; PULSE 82; TEMP 97.3
== END 2023-10-20 09:52 | disposition home or self-care (01) | DRG 772 ==
LOC: YASAS 11:31 → Y3E 11:33
PROVIDERS: ADMIT Allergy & Immunology; ATTEND Psychiatry & Neurology Pain Medicine
PROC: HZ42ZZZ Group Counseling for Substance Abuse Treatment, Cognitive-Behavioral (ICD-10-PCS; principal; 2023-10-13)
DX: F11.20 Opioid dependence, uncomplicated (principal); F14.20 Cocaine dependence, uncomplicated; F10.20 Alcohol dependence, uncomplicated; F12.20 Cannabis dependence, uncomplicated; F17.210 Nicotine dependence, cigarettes, uncomplicated